=== PATIENT | female | born 1985 | race Caucasian/White ===

== ENCOUNTER 2020-09-20 02:55 | Outpatient (REF) | payer OTHER, SELFPAY ==
[2020-09-20 20:45] LABS: COVID-19 RT-PCR UVMMC Result Negative (Negative)
== END 2020-09-20 03:15 ==
LOC: LBO 02:55
PROVIDERS: PCP Nurse Practitioner; Visit Provider Nurse Practitioner Family
DX: Z11.59 Encounter for screening for other viral diseases (principal)
CPT/HCPCS: U0003

== ENCOUNTER 2021-04-13 15:34 | Emergency (ER) | payer OTHER, SELFPAY ==
[2021-04-13 15:39] VITALS: BP 122/78; PULSE 82; RESP 17; TEMP 36.3; O2SAT 98
--- NOTE | 2021-04-13 15:55 | W.ED.GENAD ---
Discharge Plan Disposition Patient Disposition: HOME Condition: Stable Discharge Details Clinical Impression: Encounter for medication refill Primary Care Provider: Janneth Ramírez ED Provider: Jerson White Home Meds and New Rx's Prescriptions: Continued rizatriptan [Maxalt] 10 mg tablet See Rx Instructions PO .COMPLEX Qty: 9 RF: 5 clonazepam 0.5 mg tablet 0.5 mg PO BID Qty: 60 RF: 1 modafinil 200 mg tablet 200 mg PO QAM RF: 0 sertraline [Zoloft] 50 mg tablet 100 mg PO DAILY RF: 0 dextroamphetamine-amphetamine [Adderall XR] 30 mg capsule,extended release 24hr 30 mg PO QAM RF: 0 dextroamphetamine-amphetamine [Adderall] 15 mg tablet 15 mg PO .q afternoon RF: 0 hydroxyzine HCl 50 mg tablet 25 mg PO QID PRNRF: 0 aripiprazole 5 mg tablet 5 mg PO DAILY RF: 0 Discharge Instructions Additional Instructions: Please take your medications as prescribed. Referrals: Janneth Ramírez NP [Primary Care Provider] - Discharge Data Discharge Date/Time-TO BE ENTERED AT DEPARTURE: 04/13/21 16:29 Medical Decision Making 36-year-old female employee of [employer] here requesting dose medications that she is prescribed for narcolepsy as she forgot her medications at home today. I will provide single dose of modafinil 200 mg, Adderall 30 mg, and Adderall 15 mg as requested. HPI General Mode of arrival: ambulatory. Date/Time Provider Initiated Documentation: 04/13/21 15:46. Limitations to Documentation: no limitations. Information obtained by: patient. HPI Narrative: 36-year-old female employee at [employer] here requesting medication refill. Patient commutes from [facility] to her area and notes she forgot to bring her medications for today. I received call from residential housekeeper who confirmed this requesting that 3 provide medication for her narcolepsy. Patient notes she takes modafinil 200 mg tablet daily and Adderall 30 mg at night and 1.5 mg in the morning. She is requesting single dose of each of these until she can get home tomorrow for continued medication Related Data Home Medications Medication Instructions Recorded Confirmed rizatriptan 10 mg tablet See Rx Instructions PO .COMPLEX #9 08/22/20 04/13/21 tab clonazepam 0.5 mg tablet 0.5 mg PO BID #60 tab 09/12/20 04/13/21 modafinil 200 mg tablet 200 mg PO QAM tab 10/19/20 04/13/21 sertraline 50 mg tablet 100 mg PO DAILY 02/02/21 04/13/21 dextroamphetamine-amphetamine 15 15 mg PO .q afternoon tab 03/20/21 04/13/21 mg tablet dextroamphetamine-amphetamine ER 30 mg PO QAM cap 03/20/21 04/13/21 30 mg 24hr capsule,extend release aripiprazole 5 mg PO DAILY 04/13/21 04/13/21 hydroxyzine HCl 25 mg PO QID PRN 04/13/21 04/13/21 Previous Rx's Medication Instructions Recorded rizatriptan 10 mg tablet See Rx Instructions PO .COMPLEX #9 08/22/20 tab clonazepam 0.5 mg tablet 0.5 mg PO BID #60 tab 09/12/20 Allergies Allergy/AdvReac Type Severity Reaction Status Date / Time Sulfa (Sulfonamide Allergy Hives Verified 11/24/20 10:56 Antibiotics) prochlorperazine AdvReac Intermediate dizziness, Verified 11/24/20 10:56 [From Compazine] disoriented General Stated Complaint: GenMedical KIRTI: 5 Review of Systems Constitutional Constitutional: Reports fatigue Endocrine Endocrine: Reports fatigue PFSH Medical History ADHD Anxiety Heart murmur Hypersomnia Migraine Migraine headache without aura Panic Seizures Played field hockey in college, multiple concussions. Had 2 seizures after; normal eeg. Family History Mother Anxiety Hypertension ADHD Sister Anxiety Paternal Aunt Cancer Paternal Uncle Cancer Paternal Grandmother Cancer Maternal Grandmother Depression Maternal Aunt Heart disease Social History Smoking/Tobacco Use Status: Never Smoking risk assessment performed?: Yes Alcohol Intake: current Alcohol Intake frequency: holidays/special occasions only Drug use: Never Substance use type: does not use Adopted: No Caregiver/Support person: Yes Foster care: No Household members: spouse and children Housing: house Number of Children: 1 Communication Needs: None Do you need help understanding health information?: Never 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, [employer] - [employer] Sexually active: Yes Do you think of yourself as: straight/heterosexual Current gender identity: female What is your relationship status?: living with partner Panel score (0-1 are the most socially isolated patients): 1 What type of physical activity do you participate in: regular exercise and running Duration: 30-45 minutes/day Frequency: 1-2 times per week Seatbelt use: always 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 Working smoke detector in home: Yes Fire extinguisher in home: Yes Carbon monox detector in home: Yes Do you feel safe at home: Yes Do you feel safe in your relationship?: Yes Exam Const General: cooperative Orientation: alert HENMT Mouth: moist mucous membranes Resp Effort & Inspection: normal respiratory effort Neuro General: patient alert and patient awake Cognition: normal cognition Speech: speech normal Psych Appearance: grossly normal Speech and Movement: speech and movement normal Course Vital Signs Vital signs: Vital Signs Temperature 36.3 C L 04/13/21 15:39 Pulse 82 04/13/21 15:39 Respiratory Rate 17 04/13/21 15:39 Blood Pressure 122/78 04/13/21 15:39 Pulse Oximetry 98 04/13/21 15:39 Temperature 36.3 C L 04/13/21 15:39 Temperature Source Temporal Artery Scan 04/13/21 15:39 Pulse 82 04/13/21 15:39 Respiratory Rate 17 04/13/21 15:39 Respiratory Effort Non-Labored 04/13/21 15:44 Blood Pressure 122/78 04/13/21 15:39 Blood Pressure Position Sitting 04/13/21 15:39 Pulse Oximetry 98 04/13/21 15:39 Oxygen Delivery Method Room Air 04/13/21 15:39 Oxygen Flow Rate 0 04/13/21 15:39 Pain Level 0 04/13/21 15:39
[2021-04-13] MEDS: MODAFINIL 200 MG TAB PO (16:23)
[2021-04-13 16:26] VITALS: RESP 18
== END 2021-04-13 16:29 | disposition home or self-care (01) ==
PROVIDERS: Emergency Provider Student in an Organized Health Care Education/Training Program; PCP Nurse Practitioner
DX: Z76.0 Encounter for issue of repeat prescription (principal)
CPT/HCPCS: 99283; 99282; J3490

== ENCOUNTER 2021-05-16 17:12 | Outpatient (REF) | payer OTHER, SELFPAY | END 2021-05-16 17:13 | disposition home or self-care (01) | LOC: LBO 17:12 | PROVIDERS: Visit Provider Advanced Practice Midwife | DX: Z32.01 Encounter for pregnancy test, result positive (principal) | CPT/HCPCS: 36415; 86850; 86900; 86901; 84702 ==

== ENCOUNTER 2021-05-18 04:36 | Outpatient (CLI) | payer OTHER, SELFPAY ==
[2021-05-18 15:21] LABS: HCG Quant, Pregnancy 23611 mIU/mL (1-3)
[2021-05-19 10:40] LABS: Lyme Ab w Rflx to Lyme Confirm Negative (Negative)
[2021-05-22 23:28] LABS: Anaplasma phagocytophilum Negative (Negative); B. miyamotoi PCR Negative (Negative); Babesia divergens/MO-1 Negative (Negative); Babesia duncani Negative (Negative); Babesia microti Negative (Negative); Ehrlichia chaffeensis Negative (Negative); Ehrlichia ewingii/canis Negative (Negative); Ehrlichia muris eauclairensis Negative (Negative)
== END 2021-05-18 04:37 | disposition home or self-care (01) ==
LOC: LBO 04:36
PROVIDERS: Nurse Practitioner; Visit Provider Advanced Practice Midwife
DX: G43.009 Migraine without aura, not intractable, without status migrainosus (principal); O20.0 Threatened abortion
CPT/HCPCS: 36415; 87798; 84702; 86618

== ENCOUNTER 2021-05-23 09:45 | Outpatient (CLI) | payer OTHER, SELFPAY ==
[2021-05-23 10:42] LABS: HCT 36.9 % (36.0-46.0); HGB 12.3 g/dL (11.2-15.7); MCH 29.3 pg (27.0-33.0); MCHC 33.3 % (32.0-36.0); MCV 87.9 fL (80-95); Platelet Count 255 10^3/uL (130-400); RDW 11.7 % (11.7-14.6); RDW-SD 37.5 fL; WBC 10.82 10^3/uL (4.4-10.8)
[2021-05-23 11:24] LABS: Chloride 100 mmol/L (98-107); Potassium 4.1 mmol/L (3.5-5.1); Sodium 138 mmol/L (136-145)
[2021-05-23 13:18] LABS: Source Nasal/Nares
[2021-05-23 23:18] LABS: COVID-19 PCR Negative (Negative)
== END 2021-05-23 09:46 | disposition home or self-care (01) ==
LOC: LBO 09:46
PROVIDERS: Visit Provider Obstetrics & Gynecology Gynecology
DX: O02.1 Missed abortion (principal); Z20.822 Contact with and (suspected) exposure to COVID-19; Z01.818 Encounter for other preprocedural examination; Z01.812 Encounter for preprocedural laboratory examination
CPT/HCPCS: 36415; 80051; 85027; 86850; 86900; 86901; 87635

== ENCOUNTER 2021-05-24 06:18 | Day surgery (SDC) | payer OTHER, SELFPAY ==
[2021-05-24] VITALS (8 sets, daily range): BP systolic 97–124; BP diastolic 60–80; PULSE 66–73; RESP 16–19; TEMP 36.1–36.6; O2SAT 99–100; BMI 28.2
[2021-05-24] MEDS: Lactated Ringers 1,000 ML 125 ML IV (07:05)
--- NOTE | 2021-05-24 07:21 | W.ANESPRE ---
General Info Date of Service Date Performed: 05/24/21 Height: 5 ft 7 in Weight: 81.8 kg Body Mass Index (BMI): 28.2 Surgical Procedure: Operation Date: 05/24/21 07:40 Proposed Procedures Side Surgeon p Suction Completion Thelma Rosas MD Meds Allergies and Home Medications Allergies Allergy/AdvReac Type Severity Reaction Status Date / Time Sulfa (Sulfonamide Allergy Intermediate Hives Verified 05/24/21 06:39 Antibiotics) prochlorperazine AdvReac Intermediate dizziness, Verified 05/24/21 06:40 [From Compazine] disoriented Home Medication Medication Instructions Recorded sertraline 50 mg tablet 100 mg PO DAILY 02/02/21 hydroxyzine HCl 25 mg PO QID PRN 04/13/21 vit no.95-ferrous 1 tab PO DAILY 05/12/21 fumarate 28 mg-folic acid 800 mcg tablet ondansetron 4 mg disintegrating 4 mg PO Q6H #60 tab 05/19/21 tablet promethazine 25 mg tablet 25 mg PO Q6H PRN #20 tab 05/23/21 Current Visit Medications: Current Medications Generic Name Dose Route Start Last Admin Trade Name Freq PRN Reason Stop Dose Admin Ringer's Solution 1,000 mls @ 125 mls/hr 05/24/21 06:00 IV 06/22/21 23:59 INFUSION CARLOS Doxycycline Hyclate 100 mg/ 100 mls @ 100 mls/hr 05/24/21 06:00 Sodium Chloride IVPB 05/24/21 16:00 PREOP CARLOS IV Miscellaneous Supplies 1 each 05/24/21 06:00 Iv Access IV 06/22/21 23:59 DIRECTED CARLOS Sodium Chloride 0 ml 05/24/21 06:00 Normal Saline Flush 10 Ml Syr IV 06/22/21 23:59 PRN PRN Sodium Chloride 0 ml 05/24/21 06:00 Normal Saline 10 Ml Vial IJ 06/22/21 23:59 DIRECTED PRN Sterile Water 0 ml 05/24/21 06:00 Water,Injection,Sterile 10 Ml Vial IJ 06/22/21 23:59 DIRECTED PRN PFSH Active Problems Active Problems: Problem Status Onset Code Encounter for screening for other viral diseases Z11.59 Abnormal EEG R94.01 Encounter for medication refill Z76.0 Positive test Z32.01 Missed O02.1 Preop examination Z01.818 Nausea/vomiting in O21.9 Migraine headache without aura G43.009 Panic F41.0 Seizures R56.9 Migraine G43.909 Heart murmur R01.1 ADHD F90.9 Hypersomnia G47.10 Anxiety F41.9 Medical History Medical History ADHD Anxiety Heart murmur Pt. states she had a complete work-up when she was 15, and hasn't had any issues with it since. Hypersomnia Migraine Migraine headache without aura Narcolepsy Pt. 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 Had 2 seizures after; normal eeg. Last seizure 2015 Tobacco Smoking/Tobacco Use Status: Never Alcohol Alcohol Intake: current Alcohol intake frequency: holidays/special occasions only Substance Use Substance use: Never Substance use type: does not use Details: alcohol: unknown Prental History History 2 Para 1 Hx # Term Pregnancies 1 Multiple births Hx # Pregnancies Ectopic pregnancies AB induced Hx Number of Living Children 1 AB spontaneous 1 Vital Signs and Lab Results Vital Signs Most Recent Vital Signs in EMR: Most Recent Vital Signs Temp Pulse Resp BP Pulse Ox 36.2 C L 69 16 123/74 99 05/24/21 06:49 05/24/21 06:49 05/24/21 06:49 05/24/21 06:49 05/24/21 06:49 Lab Results Blood Type / Crossmatch: Patient ABO/Rh A Positive 05/23/21 10:25 05/23/21 Antibody Screen NEGATIVE 05/23/21 10:25 05/23/21 Complete Blood Count: White Blood Count 10.82 10^3/uL (4.4-10.8) H 05/23/21 10:25 05/23/21 Red Blood Count 4.20 10^6/uL (3.93-5.22) 05/23/21 10:25 05/23/21 Hemoglobin 12.3 g/dL (11.2-15.7) 05/23/21 10:25 05/23/21 Hematocrit 36.9 % (36.0-46.0) 05/23/21 10:25 05/23/21 Platelet Count 255 10^3/uL (130-400) 05/23/21 10:25 05/23/21 Complete Metabolic Panel: Sodium Level 138 mmol/L (136-145) 05/23/21 10:25 05/23/21 Potassium Level 4.1 mmol/L (3.5-5.1) 05/23/21 10:25 05/23/21 Chloride Level 100 mmol/L (98-107) 05/23/21 10:25 05/23/21 Carbon Dioxide Level 23.0 mmol/L (21.0-32.0) 05/23/21 10:25 05/23/21 Liver Function Panel: No Data to Display Coagulation Panel: No Data to Display Cardiac Panel: No Data to Display Arterial Blood Gas: No Data to Display Venous Blood Gas: No Data to Display Pancreas Panel: No Data to Display Thyroid Panel: No Data to Display Infectious Disease: Coronavirus (COVID-19)(PCR) Negative (Negative) 05/23/21 10:36 05/23/21 Coronavirus 2019 Source Nasal/Nares 05/23/21 10:36 05/23/21 Blood Cultures: No Data to Display Toxicology Panel: No Data to Display Panel: Urine HCG, Qualitative Positive 05/12/21 14:35 05/12/21 Beta HCG, Quantitative 47704 mIU/mL (1-3) H 05/18/21 14:35 05/18/21 Anesthesia Assessment and Plan Anesthesia History Personal History: No History of Anesthesia Complications Family History: No Family History of Anesthesia Complications Exercise Tolerance Exercise Tolerance: Metabolic Equivalents>4 Pertinent Negatives Pertinent Negatives: No Symptoms of GERD Cardiac & Pulmonary Exam Cardiac Exam: Heart Murmur Present Pulmonary Exam: Clear Bilateral Breath Sounds Airway Exam Known Difficult Airway: No Mallampati Class: 2 Mouth Opening: Normal (> 3cm) Thyromental Distance: Greater than 3 cm Neck Range of Motion: Full ROM Neck Circumference: Normal Teeth Condition: Normal Dentition ASA Classification ASA Score: ASA 2 Emergency Case?: No NPO Status NPO Status: NPO Clears >2 hours, Solids >8 hours Status Status: Not Relevant due to Medical History Anesthesia Plan Resuscitation Status: Full Code Anesthesia Technique: General Anesthesia Airway Planned: Natural Airway Monitors Used: Standard Monitors
[2021-05-24] MEDS: DOXYCYCLINE 100 MG in Normal Saline 100 ML IVPB (07:24)
--- NOTE | 2021-05-24 08:00 | POCSPONT_PTH ---
PATIENT: Mary Araya LOC: [facility] U#:[id number] AGE/SX: 36/F ROOM: RE05/24/[address]: Thelma Rosas : 1985 BED: DIS: 05/24/2021 SPEC #: [id number] RECD: 05/24/21 12:30 STATUS: MEGAN REPhilomena #: [id number] WILMA: 05/24/21 08:[address]: Thelma Rosas DEPT: Surgical Specimen RECD BY: Vanessa Hagan ENTERED: 05/24/21 12:30 SP TYPE: POCMARIMAR WATTS DR: Unknown,Unknown Tissues: 1 - ,SPONTANEOUS Procedures: GROSS AND MICRO LEVEL 4 Comments: [id number]
[2021-05-24] MEDS: Bupivacaine 0.25% Pres-Free 30 ML VIAL (08:01)
[2021-05-24] MEDS: Silver Nitrate Stick 1 EACH (08:01)
--- NOTE | 2021-05-24 08:33 | W.PM.DSUDISC ---
Discharge Plan Disposition Patient Disposition: HOME Condition: Good Discharge Details Reason For Visit: Missed AB at 9w EGA. D&C Attending Provider: Thelma Rosas Primary Care Provider: Unknown,Unknown Home Meds and New Rx's Prescriptions: No Action PNV cmb#95-ferrous fumarate-FA 28 mg iron- 800 mcg tablet 1 tab PO DAILY RF: 0 promethazine 25 mg tablet 25 mg PO Q6H PRN (Reason: nausea and vomiting) Qty: 20 RF: 0 sertraline [Zoloft] 50 mg tablet 100 mg PO DAILY RF: 0 ondansetron 4 mg tablet,disintegrating 4 mg PO Q6H Qty: 60 RF: 0 hydroxyzine HCl 50 mg tablet 25 mg PO QID PRNRF: 0 Discharge Instructions Additional Instructions: Nothing in the vagina no tampons no intercourse until bleeding is stopped. Motrin 600 mg every 6 hours for pain. Stand Alone Forms: Anesthesia Discharge Inst., [facility] Post Gynecology Surgery, Briseida Oneill (DSU) Activity:: Activity as Tolerated Diet:: As Tolerated Discharge Orders Discharge Orders: Discharge Order (Routine); Ordered 05/24/21 Ordered By: Thelma Rosas DS: Diagnosis Discharge Diagnosis (1) H/O dilation and curettage: Status: Acute (2) Missed : Status: Acute
--- NOTE | 2021-05-24 08:37 | W.ANESPOSTOP ---
Postoperative Evaluation Date, Time and Location Date Performed: 05/24/21 Time Performed: 08:37 Patient Location: PACU Vital Signs Most Recent Imported Vital Signs: Most Recent Vital Signs Temp Pulse Resp BP Pulse Ox 36.2 C L 66 18 113/63 100 05/24/21 08:32 05/24/21 08:32 05/24/21 08:32 05/24/21 08:32 05/24/21 08:32 Pain Score Most Recent Pain Score: Most Recent Pain Score Pain Level 0 05/24/21 08:32 Assessment Mental Status: Awake (Alert & Oriented to Patient Baseline) Airway and Respiratory Function: Patent airway with normal (patient baseline) respiratory exam Cardiovascular Function: Hemodynamically Stable Hydration Status: Adequately Hydrated Nausea & Vomiting: No Nausea or Vomiting Pain: Pain is tolerable per patient (Reported slight cramping) Peripheral Nerve Block: Other (Patient localized by Dr. Rosas. )
--- NOTE | 2021-05-24 09:10 | W.PM.OP ---
Date of service: 05/24/21 Time of Service: 09:10 Operative Note Operative Note DATE OF PROCEDURE: 05/24/21 PRE-OP DIAGNOSIS: Missed AB at 9 weeks EGA PROCEDURE: Cervical dilation and suction evacuation of uterine contents SURGEON: Thelma Rosas ANESTHESIA TYPE: General:No Airway Refer to Anesthesia Record ESTIMATED BLOOD LOSS: 5 PATHOLOGY: other (Products of conception to pathology) COMPLICATIONS: None Patient was transported to: PACU Patient's condition: stable Indications: 36-year-old female with a documented empty gestational sac measuring approximately 7 weeks EGA who is requested definitive treatment. She has not experienced cramping or bleeding prior to this procedure. Findings: Uterus sounded to 10 cm. Moderate amount of products of conception retrieved. Procedure Description: Patient was taken to the operating room where she was placed in the dorsal supine position and general anesthesia was administered without difficulty. IV Doxycycline was administered upon arrival in the OR. She was then placed in the dorsal lithotomy position in [facility] stirrups in a neurologically neutral position. She was then prepped, and draped in the usual sterile fashion. Surgical timeout was performed. Milton speculum was placed into the vagina and the anterior lip of the cervix was infiltrated with 2 cc of 0.25% Marcaine without epinephrine. A single-tooth tenaculum was then used to grasp and hold the anterior lip of the cervix. A paracervical block was performed with 4 cc of quarter percent Marcaine injected into the 4 and 8:00 paracervical spaces respectively. The uterus was sounded to 10 cm. The cervix was then sequentially dilated to a maximum of 9 Cris and a 8 mm curved suction cannula was attached to suction and the level of suction tested. The cannula was inserted into the uterine cavity attached to suction and sequentially all 4 quadrants of the uterine cavity were suction curetted until minimal tissue returned. The suction cannula was then removed a banjo curette was used to perform a gentle curetting of all 4 quadrants of the uterine cavity. Minimal tissue was returned. A final insertion of the suction cannula and suction curetting of all 4 quadrants was performed with minimal tissue returned. All instruments were removed from the vagina tenaculum site was noted to be oozing. Silver Nitrate was applied to the areas with hemostasis achieved. All instruments were removed from the vagina. Patient was awakened and transported to recovery area in stable condition. All sponge lap needle counts correct x2
[2021-05-24] MEDS: oxyCODONE 5 mg/Acetaminophen 325 mg TAB 2 TAB PO (09:14)
== END 2021-05-24 10:25 | disposition home or self-care (01) ==
PROVIDERS: Visit Provider Obstetrics & Gynecology Gynecology
PROC: (CPT 59841; principal; 2021-05-24 07:30)
DX: O02.1 Missed abortion (principal); Z3A.09 9 weeks gestation of pregnancy
CPT/HCPCS: 59820; 88305; J1100; J1885; J2001; J2250; J2405

== ENCOUNTER 2021-08-07 16:20 | Outpatient (CLI) | payer OTHER, SELFPAY ==
[2021-08-07 17:00] LABS: Abs Immature Grans 0.06 10^3/uL (0.0-0.06); Absolute Basophil Count 0.04 10^3/uL (0.0-0.2); Basophils % 0.3; Eosinophils % 0.1; HCT 41.4 % (36.0-46.0); HGB 13.8 g/dL (11.2-15.7); Immature Grans % 0.4; Lymphocytes % 17.4; MCH 28.7 pg (27.0-33.0); MCHC 33.3 % (32.0-36.0); MCV 86.1 fL (80-95); MPV 9.8 fL (8.0-11.0); Monocytes % 4.4; Neutrophils % 77.4; Nucleated RBC 0 %; Platelet Count 312 10^3/uL (130-400); RBC 4.81 10^6/uL (3.93-5.22); RDW 11.7 % (11.7-14.6); WBC 14.86 10^3/uL (4.4-10.8)
[2021-08-07 17:02] LABS: Absolute Eosinophil Count 0.01 10^3/uL (0.0-0.7); Absolute Lymphocyte Count 2.59 10^3/uL (1.2-3.4); Absolute Monocyte Count 0.65 10^3/uL (0.1-0.8)
[2021-08-07 17:11] LABS: Mono Screening Negative (Negative)
[2021-08-07 17:27] LABS: HCG Qual (Urine) Negative
[2021-08-07 18:07] LABS: ALT 41 U/L (14-59); AST 29 U/L (15-37); Albumin 4.9 g/dL (3.4-5.0); Alkaline Phosphatase 53 U/L (46-116); Anion Gap 10.6 mmol/L (3-11); BUN 18 mg/dL (7-18); Bilirubin, Total 0.3 mg/dL (0.2-1.0); C-Reactive Protein 0.26 mg/dL (0.0-0.3); CO2 27.4 mmol/L (21.0-32.0); Calcium 9.9 mg/dL (8.5-10.1); Chloride 101 mmol/L (98-107); Glucose 86 mg/dL (74-106); Potassium 3.9 mmol/L (3.5-5.1); Sodium 139 mmol/L (136-145); Total Protein 8.6 g/dL (6.4-8.2)
[2021-08-07 18:44] LABS: Calculated LDL 167 mg/dL (<100); Cholesterol 270 mg/dL (<200); HDL Cholesterol 43 mg/dL (40-60); Triglyceride 303 mg/dL (<150); Vitamin B12 877 pg/mL (193-986)
[2021-08-07 18:46] LABS: Folate > 20.0 ng/mL (8.6-20.0)
[2021-08-11 04:14] LABS: 25-Hydroxy D Total 37 ng/mL; 25-Hydroxy D2 <4.0 ng/mL; 25-Hydroxy D3 37 ng/mL
== END 2021-08-07 16:21 | disposition home or self-care (01) ==
LOC: LBO 16:22
PROVIDERS: PCP Nurse Practitioner; Visit Provider Nurse Practitioner Psychiatric/Mental Health
DX: G47.9 Sleep disorder, unspecified (principal)
CPT/HCPCS: 36415; 80053; 80061; 82306; 81025; 82607; 82746; 85025; 86140; 86308

== ENCOUNTER 2021-09-07 11:36 | Emergency (ER) | payer OTHER, SELFPAY ==
--- NOTE | 2021-09-07 11:39 | W.ED.GENAD ---
Discharge Plan Disposition Patient Disposition: HOME Condition: Stable Discharge Details Clinical Impression: Fracture of toe of left foot Primary Care Provider: Janneth Ramírez ED Provider: Kristina Long Home Meds and New Rx's Prescriptions: Continued sertraline [Zoloft] 50 mg tablet 100 mg PO DAILY RF: 0 Vyvanse 70 mg capsule 70 mg PO DAILY MDD one Qty: 30 RF: 0 dextroamphetamine-amphetamine 15 mg tablet 15 mg PO DAILY RF: 0 dextroamphetamine-amphetamine 30 mg capsule,extended release 24hr 30 mg PO DAILY RF: 0 Discharge Instructions Instructions: Toe Fracture (ED) Additional Instructions: Rest, ice, and elevate the affected area as much as possible. Alternate tylenol and motrin as needed and directed for pain. Take the oxycodone for pain not relieved with tylenol or motrin. Call the orthopedist office today to schedule a follow-up for reevaluation. Return immediately to the emergency department if you develop any worsening or new concerning symptoms. Stand Alone Forms: Work Release Referrals: Terry Siddiqui MD [ [facility] STAFF PHYSICIAN] - Discharge Data Discharge Date/Time-TO BE ENTERED AT DEPARTURE: 09/07/21 13:24 Discharge Physician: Kristina Long Medical Decision Making 36-year-old female presents with left fourth toe and distal foot pain after stubbed her toe while cleaning around the house 2 days ago. There is tenderness to the left fourth toe and distal dorsal foot. Suspect fracture of toe. Patient denies . She admits to a recent miscarriage last month and declines giving urine test. A dose of ibuprofen ordered and referred x-rays. X-rays reviewed and notes nondisplaced fracture proximal phalanx of left fourth toe. Patient placed in walking boot and given crutches. Patient placed on orthopedic follow-up list. Advised on the importance of RICE. Advised to call Orthopedics today for follow-up. Usual and customary return precautions given prior to discharge. Medical Records Medical records reviewed: Yes I reviewed the patient's medical records. Imaging Data Radiologic Study: Radiologist's impression: XR FOOT LT COMPLETE CLINICAL HISTORY: s/p stubbed L 4th toe,r/o fx 4th toe distal foot. TECHNIQUE: 2D digital imaging was performed. COMPARISON: No exams were available for comparison FINDINGS: There is a nondisplaced fracture of the proximal phalanx of the 4th toe, this located in the proximal half of the proximal phalanx. Does not appear to obviously violate the metatarsophalangeal joint at this level. There is no radiopaque foreign body. No osseous lesions. No additional fractures. IMPRESSION: There is nondisplaced fracture in the proximal half of the proximal phalanx of the 4th toe. HPI General Mode of arrival: ambulatory. Date/Time Provider Initiated Documentation: 09/07/21 11:39. Limitations to Documentation: no limitations. Information obtained by: patient. HPI Narrative: Patient is a 36-year-old female presents with left foot pain for the past 2 days after stubbing her toe while walking. Patient states she was walking around her house cleaning when she stubbed her left fourth toe on a metal hinge of a recliner. Patient states she has been having pain since then but thinks it became worse after she [place]. She took ibuprofen this morning without relief. She denies any significant ankle pain. Related Data Home Medications Medication Instructions Recorded Confirmed sertraline 50 mg tablet 100 mg PO DAILY 02/02/21 09/07/21 lisdexamfetamine 70 mg capsule 70 mg PO DAILY #30 cap MDD one 06/12/21 09/07/21 dextroamphetamine-amphetamine 15 mg PO DAILY 09/07/21 09/07/21 dextroamphetamine-amphetamine 30 mg PO DAILY 09/07/21 09/07/21 Previous Rx's Medication Instructions Recorded lisdexamfetamine 70 mg capsule 70 mg PO DAILY #30 cap MDD one 06/12/21 Allergies Allergy/AdvReac Type Severity Reaction Status Date / Time Sulfa (Sulfonamide Allergy Intermediate Hives Verified 09/07/21 11:49 Antibiotics) prochlorperazine AdvReac Intermediate dizziness, Verified 09/07/21 11:49 [From Compazine] disoriented General KIRTI: 5 Review of Systems All systems reviewed & are unremarkable except as noted in HPI and below [facility] Active Problem List (Updated 09/07/21 @ 12:38 by Kristina Long DO) Fracture of toe of left foot (Acute) Missed menses (Acute) History of miscarriage, not currently (Acute) History of pre-eclampsia (Acute) H/O dilation and curettage (Acute) Encounter for screening for other viral diseases (Acute) Abnormal EEG (Acute) Encounter for medication refill (Acute) Positive test (Acute) Missed (Acute) Preop examination (Acute) Nausea/vomiting in (Acute) Migraine headache without aura (Acute) Panic (Acute) Seizures (Acute) Migraine (Chronic) Heart murmur (Acute) ADHD (Acute) Hypersomnia (Acute) Anxiety (Chronic) Medical History (Updated 09/07/21 @ 12:38 by Kristina Long DO) Narcolepsy Pt. states it goes between narcolepsy and hypersomnia Family History Mother Anxiety Hypertension ADHD Sister Anxiety Paternal Aunt Cancer Paternal Uncle Cancer Paternal Grandmother Cancer Maternal Grandmother Depression Maternal Aunt Heart disease Social History Smoking/Tobacco Use Status: Never Smoking risk assessment performed?: Yes Alcohol Intake: current Alcohol Intake frequency: holidays/special occasions only Drug use: Never Substance use type: does not use Details: alcohol: unknown Adopted: No Caregiver/Support person: Yes Foster care: No Household members: spouse and children Housing: house Number of Children: 1 Communication Needs: None Do you need help understanding health information?: Never 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, [employer]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[employer] Sexually active: Yes Do you think of yourself as: straight/heterosexual Current gender identity: female What is your relationship status?: living with partner Panel score (0-1 are the most socially isolated patients): 1 What type of physical activity do you participate in: regular exercise and running Duration: 30-45 minutes/day Frequency: 1-2 times per week Seatbelt use: always 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 Working smoke detector in home: Yes Fire extinguisher in home: Yes Carbon monox detector in home: Yes Do you feel safe at home: Yes Do you feel safe in your relationship?: Yes History History 2 Para 1 Hx # Term Pregnancies 1 Multiple births Hx # Pregnancies Ectopic pregnancies AB induced Hx Number of Living Children 1 AB spontaneous 1 Exam Const General: cooperative, healthy appearing and no acute distress HENMT Head: normal to inspection Mouth: oral mucosae normal Eyes General: appearance normal, both eyes and all related structures Neck Neck: normal visual inspection Resp Effort & Inspection: normal respiratory effort and able to speak in complete sentences Cardio Rate: regular rate Skin General skin exam: no rashes or lesions noted Neuro General: patient alert, patient awake and patient oriented x3 Motor: muscle tone normal throughout Extrem Ankle/foot/toe images: 1. Ecchymosis and tenderness of left fourth toe and dorsal distal foot. No open wounds. No deformity. No significant edema. Other: Left DP/PT pulses intact. Psych Appearance: grossly normal Affect: normal affect
[2021-09-07 11:44] VITALS: BP 135/92; PULSE 81; RESP 18; TEMP 36.6; O2SAT 99
--- NOTE | 2021-09-07 11:45 | DI.RAD_ITS ---
Exam(s) XR FOOT LT COMPLETE EXAM: XR FOOT LT COMPLETE CLINICAL HISTORY: s/p stubbed L 4th toe,r/o fx 4th toe distal foot. TECHNIQUE: 2D digital imaging was performed. COMPARISON: No exams were available for comparison FINDINGS: There is a nondisplaced fracture of the proximal phalanx of the 4th toe, this located in the proximal half of the proximal phalanx. Does not appear to obviously violate the metatarsophalangeal joint at this level. There is no radiopaque foreign body. No osseous lesions. No additional fractures. IMPRESSION: There is nondisplaced fracture in the proximal half of the proximal phalanx of the 4th toe. DATA REPOSITORY: RADIATION DOSE DELIVERED:
[2021-09-07] MEDS: Ibuprofen 600 MG TAB PO (12:04)
== END 2021-09-07 13:24 | disposition home or self-care (01) ==
PROVIDERS: Emergency Provider Physician Assistant; PCP Nurse Practitioner
DX: S92.515A Nondisplaced fracture of proximal phalanx of left lesser toe(s), initial encounter for closed fracture (principal); W22.03XA Walked into furniture, initial encounter
CPT/HCPCS: 29515; 99283; 73630

== ENCOUNTER 2021-10-24 09:07 | Emergency (ER) | payer OTHER, SELFPAY ==
--- NOTE | 2021-10-24 09:08 | ED.GENADUL_ITS ---
Discharge Plan Disposition Patient Disposition: HOME Condition: Stable Discharge Details Clinical Impression: Medication administered Primary Care Provider: Janneth Ramírez ED Provider: Kristina Long Home Meds and New Rx's Prescriptions: Continued Vyvanse 70 mg capsule 30 mg PO DAILY RF: 0 sertraline [Zoloft] 50 mg tablet 100 mg PO DAILY RF: 0 dextroamphetamine-amphetamine 15 mg tablet 15 mg PO DAILY RF: 0 dextroamphetamine-amphetamine 30 mg capsule,extended release 24hr 30 mg PO DAILY RF: 0 Discharge Instructions Additional Instructions: Please take the 15 mg dose on your Adderall this afternoon that you were given to go here in the emergency department upon discharge this morning. Please continue your regular medications as directed. Follow up with your primary care doctor in 1 week as needed. Return to the emergency department with any worsening or new concerning symptoms. 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 She denies any acute complaints. Vitals within normal limits. Patient appears comfortable and nontoxic. She take Adderall extended release 30 mg, Vyvanse 30 mg and Zoloft 100 mg now this morning and needs a 15 mg dose Adderall immediate release for the afternoon. Discussed with pharmacy and they will deliver these medications to the ED. Advised to follow up with the primary care doctor for re-evaluation as needed. Usual and customary return precautions given prior to discharge. Medical Records Medical records reviewed: Yes I reviewed the patient's medical records. HPI General Mode of arrival: ambulatory . Date/Time Provider Initiated Documentation: 10/24/21 09:07 . Limitations to Documentation: no limitations . Information obtained by: patient . 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 She denies any acute complaints. She states she takes Adderall XR 30 mg, Vyvanse 30 mg and Zoloft 100 mg in the morning and needs a 15 mg dose of Adderall this afternoon. Related Data Home Medications Medication Instructions Recorded Confirmed sertraline 50 mg tablet 100 mg PO DAILY 02/02/21 10/24/21 dextroamphetamine-amphetamine 15 mg PO DAILY 09/07/21 10/24/21 dextroamphetamine-amphetamine 30 mg PO DAILY 09/07/21 10/24/21 lisdexamfetamine 70 mg capsule 30 mg PO DAILY cap 09/22/21 10/24/21 Allergies Allergy/AdvReac Type Severity Reaction Status Date / Time Sulfa (Sulfonamide Allergy Intermediate Hives Verified 10/24/21 09:14 Antibiotics) prochlorperazine AdvReac Intermediate dizziness, Verified 10/24/21 09:14 [From Compazine] disoriented General KIRTI: 4 Review of Systems All systems reviewed & are unremarkable except as noted in HPI and below Constitutional Constitutional: Reports as per HPI, Denies chills and Denies fever(s) Eyes Eyes: Denies blurry vision ENT Ears, Nose, Mouth, and Throat: Denies dizziness, Denies sore throat and Denies throat swelling Cardiovascular Cardiovascular: Denies chest pain and Denies dyspnea Respiratory Respiratory: Denies cough and Denies dyspnea Gastrointestinal Gastrointestinal: Denies abdominal pain, Denies diarrhea and Denies vomiting Genitourinary Genitourinary: Denies hematuria and Denies dysuria Musculoskeletal Musculoskeletal: Denies back pain and Denies numbness Integumentary/Breasts Skin/Breast: Denies lesions and Denies rash Neurologic Neurologic: Denies dizziness, Denies localized weakness and Denies numbness Allergic/Immunologic Allergic/Immunologic: Denies throat swelling [facility] All Active Problems (Updated 10/24/21 @ 09:12 by Kristina Long DO) Medication administered (Acute) Fracture of toe of left foot (Acute) Proximal phalanx of the fourth toe Missed menses (Acute) History of miscarriage, not currently (Acute) History of pre-eclampsia (Acute) H/O dilation and curettage (Acute) Encounter for screening for other viral diseases (Acute) Abnormal EEG (Acute) Encounter for medication refill (Acute) Positive test (Acute) Missed (Acute) 05/23/2021. Confirmed: 7-week empty gestational sac Preop examination (Acute) Nausea/vomiting in (Acute) Ondansetron not effective. We will begin Phenergan 25 mg p.o. 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 Had 2 seizures after; normal eeg. Last seizure 2015 Migraine (Chronic) Heart murmur (Acute) Pt. states she had a complete work-up when she was 15, and hasn't had any issues with it since. ADHD (Acute) Hypersomnia (Acute) Anxiety (Chronic) Medical History (Updated 10/24/21 @ 09:12 by Kristina Long DO) Narcolepsy Pt. states it goes between narcolepsy and hypersomnia Family History Mother Anxiety Hypertension ADHD Sister Anxiety Paternal Aunt Cancer Paternal Uncle Cancer Paternal Grandmother Cancer Maternal Grandmother Depression Maternal Aunt Heart disease Social History Smoking/Tobacco Use Status: Never Smoking risk assessment performed?: Yes Alcohol Intake: current Alcohol Intake frequency: holidays/special occasions only Drug use: Never Substance use type: does not use Details: alcohol: unknown Adopted: No Caregiver/Support person: Yes Foster care: No Household members: spouse and children Housing: house Number of Children: 1 Communication Needs: None Do you need help understanding health information?: Never 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, [employer]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 - [employer] Sexually active: Yes Do you think of yourself as: straight/heterosexual Current gender identity: female What is your relationship status?: living with partner Panel score (0-1 are the most socially isolated patients): 1 What type of physical activity do you participate in: regular exercise and running Duration: 30-45 minutes/day Frequency: 1-2 times per week Seatbelt use: always Drive intox or ride w/intox trash collector truck driver: No Working smoke detector in home: Yes Fire extinguisher in home: Yes Carbon monox detector in home: Yes Do you feel safe at home: Yes Do you feel safe in your relationship?: Yes History History 2 Para 1 Hx # Term Pregnancies 1 Multiple births Hx # Pregnancies Ectopic pregnancies AB induced Hx Number of Living Children 1 AB spontaneous 1 Exam Const General: cooperative, healthy appearing and no acute distress HENMT Head: normal to inspection General nose exam: external nose normal Face and sinus: normal facial exam Mouth: oral mucosae normal and moist mucous membranes Eyes General: appearance normal, both eyes and all related structures Periorbital: periorbital findings normal Eyelids: eyelids normal Conjunctivae: conjunctivae normal Pupils: PERRL Neck Neck: normal visual inspection Resp Effort & Inspection: normal respiratory effort and able to speak in complete sentences Auscultation: clear to auscultation bilaterally Cardio Rate: regular rate Rhythm: regular rhythm Skin General skin exam: no rashes or lesions noted Neuro General: patient alert, patient awake and patient oriented x3 Motor: muscle tone normal throughout Extrem General: normal to inspection and full ROM Psych Appearance: grossly normal Affect: normal affect
[2021-10-24 09:09] VITALS: BP 120/75; PULSE 82; RESP 17; TEMP 36.4; O2SAT 98
[2021-10-24 09:17] VITALS: RESP 16
[2021-10-24] MEDS: Sertraline 50 MG TAB 100 MG PO (09:52)
== END 2021-10-24 09:55 | disposition home or self-care (01) ==
PROVIDERS: Emergency Provider Physician Assistant; PCP Nurse Practitioner
DX: F90.9 Attention-deficit hyperactivity disorder, unspecified type (principal); F41.9 Anxiety disorder, unspecified; Z76.0 Encounter for issue of repeat prescription
CPT/HCPCS: 99283; J3490

== ENCOUNTER 2022-07-19 10:22 | Outpatient (CLI) | payer OTHER, SELFPAY ==
[2022-07-19 16:01] LABS: TSH (W/Ref FT4) 2.56 uIU/mL (0.36-3.74)
[2022-07-20 20:40] LABS: FSH 10.6 mIU/mL (See Note)
[2022-07-20 20:48] LABS: LH 4.9 mIU/mL (See Note)
[2022-07-21 14:09] LABS: Antimullerian Hormone 0.69 ng/mL (0.15-7.5)
[2022-07-23 08:58] LABS: Insulin 8.4 uIU/mL (<29.0)
[2022-07-24 11:42] LABS: Estradiol, Mass Spectrometry 43 pg/mL; Estrone 44 pg/mL
== END 2022-07-19 10:23 | disposition home or self-care (01) ==
LOC: LBO 10:22
PROVIDERS: PCP Nurse Practitioner Adult Health; Visit Provider Advanced Practice Midwife
DX: Z31.9 Encounter for procreative management, unspecified (principal)
CPT/HCPCS: 36415; 82670; 82679; 83001; 83002; 83520; 83525; 84443

== ENCOUNTER 2022-09-26 02:09 | Outpatient (CLI) | payer OTHER, SELFPAY ==
[2022-09-26 12:13] LABS: Abs Immature Grans 0.03 10^3/uL (0.0-0.06); Absolute Basophil Count 0.02 10^3/uL (0.0-0.2); Absolute Eosinophil Count 0.03 10^3/uL (0.0-0.7); Absolute Lymphocyte Count 1.48 10^3/uL (1.2-3.4); Absolute Monocyte Count 0.59 10^3/uL (0.1-0.8); Absolute Neutrophil Count 4.84 10^3/uL (1.2-6.7); Basophils % 0.3; Eosinophils % 0.4; HCT 38.4 % (36.0-46.0); HGB 13.3 g/dL (11.2-15.7); Immature Grans % 0.4; Lymphocytes % 21.2; MCH 30.2 pg (27.0-33.0); MCHC 34.6 % (32.0-36.0); MCV 87 fL (80-95); MPV 10.3 fL (8.0-11.0); Monocytes % 8.4; Neutrophils % 69.3; Platelet Count 263 10^3/uL (130-400); RBC 4.41 10^6/uL (3.93-5.22); RDW 11.8 % (11.7-14.6); RDW-SD 38.1 fL; WBC 6.99 10^3/uL (4.4-10.8)
[2022-09-26 12:56] LABS: ALT 46 U/L (14-59); AST 24 U/L (15-37); Albumin 3.9 g/dL (3.4-5.0); Alkaline Phosphatase 64 U/L (46-116); Anion Gap 11.7 mmol/L (3-11); BUN 18 mg/dL (7-18); Bilirubin, Total 0.2 mg/dL (0.2-1.0); CO2 23.3 mmol/L (21.0-32.0); CREATININE 0.8 mg/dL (0.55-1.02); Chloride 100 mmol/L (98-107); Estimated GFR 96.66 (mL/min/1.73m2); Glucose 110 mg/dL (74-106); LDH 151 U/L (81-234); Potassium 3.6 mmol/L (3.5-5.1); Sodium 135 mmol/L (136-145); Total Protein 8.1 g/dL (6.4-8.2); Uric Acid 3.7 mg/dL (2.6-6.0)
[2022-09-27 09:17] LABS: Varicella IgG Antibody Positive (See Note)
[2022-09-27 09:20] LABS: Rubella IgG Ab (UVM) Positive (See Note)
[2022-09-27 09:33] LABS: Hepatitis C Ab w Rflx HCV PCR Negative (Negative)
[2022-09-27 09:39] LABS: HIV-1/2 Ag & Ab Screen Negative (Negative)
[2022-09-27 10:29] LABS: Hepatitis B Surface Ag Negative (Negative)
[2022-09-28 17:53] LABS: Syphilis IgG w/Reflex Nonreactive (Nonreactive)
== END 2022-09-26 02:10 | disposition home or self-care (01) ==
LOC: LBO 02:09
PROVIDERS: Advanced Practice Midwife; PCP Nurse Practitioner Adult Health; Visit Provider Advanced Practice Midwife
DX: O09.521 Supervision of elderly multigravida, first trimester (principal); Z87.59 Personal history of other complications of pregnancy, childbirth and the puerperium; Z3A.10 10 weeks gestation of pregnancy
CPT/HCPCS: 36415; 80053; 86787; 86803; 86850; 86900; 86901; 87340; 87389; 83615; 84550; 85025; 86762; 86780

== ENCOUNTER 2022-09-26 12:15 | Outpatient (REF) | payer OTHER, SELFPAY ==
[2022-09-26 14:15] LABS: *AMPHETAMINES SCREEN URINE Negative (Negative); *BARBITURATES SCREEN URINE Negative (Negative); *BENZODIAZEPINES SCREEN URINE Negative (Negative); Cannabinoids THC Negative (Negative); Cocaine Screen,Urine Negative (Negative); METHADONE URINE SCREEN Negative (Negative); OPIATES URINE SCREEN Negative (Negative); Tricyclic Antidepressants Negative (Negative)
[2022-10-03 14:44] LABS: Buprenorphine Negative ng/mL (Cutoff: 5.0); Norbuprenorphine Negative ng/mL (Cutoff: 2.5)
== END 2022-09-26 12:16 | disposition home or self-care (01) ==
LOC: LBN 12:15
PROVIDERS: PCP Nurse Practitioner Adult Health; Visit Provider Advanced Practice Midwife
DX: Z34.91 Encounter for supervision of normal pregnancy, unspecified, first trimester (principal); Z3A.10 10 weeks gestation of pregnancy
CPT/HCPCS: 80307; 80348; 87086

== ENCOUNTER 2022-10-09 06:55 | Emergency (ER) | payer OTHER, SELFPAY ==
[2022-10-09 07:03] VITALS: BP 126/78; PULSE 93; RESP 18; TEMP 36.6; O2SAT 98
--- NOTE | 2022-10-09 08:03 | ED.GENADUL_ITS ---
Discharge Plan Discharge Details Chief Complaint: RespSymp Primary Care Provider: Gaye Garcia ED Provider: Jerson White Home Meds and New Rx's Prescriptions: No Action ondansetron 4 mg tablet,disintegrating 4 mg PO Q6H Qty: 10 0RF PNV,calcium 89-[id number] acid 27 mg iron- 1 mg tablet 1 tab PO DAILY Qty: 90 3RF doxylamine-pyridoxine (vit B6) [Diclegis] 10-10 mg tablet,delayed release (DR/EC) 1 tab PO DAILY Qty: 20 0RF sertraline [Zoloft] 50 mg tablet 50 mg PO DAILY Rx Instructions: 01/17/21 [facility] note promethazine 25 mg suppository 25 mg DE Q6H PRN (Reason: nausea and vomiting) Qty: 12 0RF dextroamphetamine-amphetamine [Adderall XR] 20 mg capsule,extended release 24hr 20 mg PO DAILY MDD 1 Qty: 30 0RF magnesium 250 mg Tablet 250 mg PO DAILY Medical Decision Making 37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 No signs of focal bacterial infection on exam. Concern for viral infection. Consider influenza and COVID. Patient is in therapeutic window for Tamiflu and I will obtain stat testing. Patient appears mildly dehydrated. I will give IV fluid bolus and Zofran IV for nausea. Consider electrolyte abnormalities we will check labs. Bedside [id number] obstetrical ultrasound was performed by me: IUP with heart rate and movement observed transabdominally. HPI General Mode of arrival: ambulatory . Date/Time Provider Initiated Documentation: 10/09/22 07:39 . Limitations to Documentation: no limitations . Information obtained by: patient . HPI Narrative: Now you can initiate the setback 37-year-old female, 12 weeks , here with chief complaint of respiratory illness. Patient notes cough, congestion, headache, inflammation of the eyes and fatigue over the past 3 days symptoms are moderate. Headache was present yesterday. She continues to have congestion today. No associated fever or shortness of breath. Patient does note she has had nausea and vomiting over the past 5 to 6 weeks. She denies abdominal pain and vaginal bleeding. Related Data Home Medications Medication Instructions Recorded Confirmed vitamin with calcium 1 tab PO DAILY #90 tabs 09/05/22 10/09/22 no.72-iron 27 mg-folic acid 1 mg tablet doxylamine 10 mg-pyridoxine (vit 1 tab PO DAILY #20 tabs 09/22/22 10/09/22 B6) 10 mg tablet,delayed release (Diclegis) ondansetron 4 mg disintegrating 4 mg PO Q6H #10 tabs 09/26/22 10/09/22 tablet sertraline 50 mg tablet (Zoloft) 50 mg PO DAILY 09/26/22 10/09/22 promethazine 25 mg rectal 25 mg DE Q6H PRN nausea and 10/04/22 10/09/22 suppository vomiting #12 ea dextroamphetamine-amphetamine ER 20 mg PO DAILY #30 caps 10/06/22 10/09/22 20 mg 24hr capsule,extend release (Adderall XR) magnesium 250 mg tablet 250 mg PO DAILY 10/09/22 10/09/22 Previous Rx's Medication Instructions Recorded vitamin with calcium 1 tab PO DAILY #90 tabs 09/05/22 no.72-iron 27 mg-folic acid 1 mg tablet doxylamine 10 mg-pyridoxine (vit 1 tab PO DAILY #20 tabs 09/22/22 B6) 10 mg tablet,delayed release (Diclegis) ondansetron 4 mg disintegrating 4 mg PO Q6H #10 tabs 09/26/22 tablet promethazine 25 mg rectal 25 mg DE Q6H PRN nausea and 10/04/22 suppository vomiting #12 ea dextroamphetamine-amphetamine ER 20 mg PO DAILY #30 caps 10/06/22 20 mg 24hr capsule,extend release (Adderall XR) Allergies Allergy/AdvReac Type Severity Reaction Status Date / Time Sulfa (Sulfonamide Allergy Intermediate Hives Verified 10/09/22 07:06 Antibiotics) prochlorperazine AdvReac Intermediate dizziness, Verified 10/09/22 07:06 [From Compazine] disoriented General Stated Complaint: RespSymp KIRTI: 4 Review of Systems All systems reviewed & are unremarkable except as noted in HPI and below Constitutional Constitutional: Reports fatigue, Denies fever(s) and Reports headache(s) ENT Ears, Nose, Mouth, and Throat: Reports as per HPI and Reports headache(s) Cardiovascular Cardiovascular: Denies dyspnea Respiratory Respiratory: Reports cough (nonproductive) and Denies dyspnea Neurologic Neurologic: Reports headache(s) Endocrine Endocrine: Reports fatigue PFSH All Active Problems Advanced maternal age in multigravida (Acute) Family history of clotting disorder (Acute) Father has unidentified clotting disorder Stage 1 hypertension (Acute) History of pre-eclampsia (Acute) (Acute) ADHD (Chronic ~2004) [facility] Hypersomnia (Chronic) [facility] Anxiety (Chronic) [facility] Medical History Abnormal EEG status post head injury, had seizure that resolved, Acute torticollis 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 states she had a complete work-up when she was 15, and hasn't had any issues with it since. 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 Confirmed: 7-week empty gestational sac Narcolepsy Pt. 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 Had 2 seizures after; normal eeg. Last seizure 2015 Surgical History H/O dilation and curettage Family History Mother Anxiety Hypertension Dx'ed in her 30s ADHD Hypersomnia High cholesterol Sister Anxiety Paternal Aunt Cancer Colon cancer Paternal Uncle Cancer Paternal Grandmother Cancer Colon cancer Maternal Grandmother Anxiety Maternal Aunt Heart disease Father Hypertension Dx'ed in his 30s Prostate cancer High cholesterol Clotting disorder 3 DVT's unknown clotting disorder on blood thinners Social History Smoking/Tobacco Use Status: Never Smoking risk assessment performed?: Yes Alcohol Intake: current Alcohol Intake frequency: holidays/special occasions only Drug use: Never Substance use type: does not use Details: alcohol: unknown Adopted: No Caregiver/Support person: Yes Foster care: No Household members: spouse and children Housing: house Number of Children: 1 Communication Needs: None Education Level: college Details: Bachelor's Degree Do you need help understanding health information?: Never 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, 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- [employer] Pets and animals: Yes Pets and animals: cat(s) and dog(s) Sexually active: Yes Do you think of yourself as: straight/heterosexual Current gender identity: female What is your relationship status?: living with partner How often do you talk on the phone with friends or family?: three or more times per week How often do you get together with friends or relatives?: three or more times per week Do you belong to any clubs or organized social groups?: yes Panel score (0-1 are the most socially isolated patients): 3 What type of physical activity do you participate in: regular exercise and running Duration: 30-45 minutes/day Frequency: 3-4 times per week Andie/Christianity: Zoroastrianism Special andie needs: No Seatbelt use: always Helmet use: Yes Drive intox or ride w/intox flag car driver: No Working smoke detector in home: Yes Fire extinguisher in home: Yes Carbon monox detector in home: Yes Do you feel safe at home: Yes Do you feel safe in your relationship?: Yes History History 5 Para 1 Hx # Term Pregnancies 1 Multiple births 0 Hx # Pregnancies 0 Ectopic pregnancies 0 AB induced 0 Hx Number of Living Children 1 AB spontaneous 3 Past Pregnancies Del. Date GA/Weeks # Preg Succ Route Wgt Sex Labor Lgth Anesth esia Location [facility] 01/13/19 38 No Yes vaginal 3685.438 g Male 14 [facility] other 05/17/21 6 No No 08/16/21 5 No 05/16/22 5 No No Delivery Date: 01/13/19 Last Updated by: Natalia Alvarez CNM induced for pre-e, second degree perineal, no magnesium, [place] Delivery Date: 05/17/21 Last Updated by: Natalia Alvarez CNM blighted ovum, D&C Delivery Date: 08/16/21 Last Updated by: Natalia Alvarez CNM SAB no D&C Delivery Date: 05/16/22 Last Updated by: Natalia Alvarez CNM SAB no D&C Exam Const General: cooperative and no acute distress HENMT Mouth: mucous membranes dry Throat: posterior oropharynx normal Eyes Conjunctivae: conjunctival abnormality bilaterally (injection) Sclera: normal sclerae Neck Neck: trachea midline and supple Resp Auscultation: clear to auscultation bilaterally, no rales, no rhonchi and no wheezes Cardio Rate: regular rate and not tachycardic Rhythm: regular rhythm GI Palpation: soft, not firm, no guarding, no masses, not rigid, nontender and other (gravid abdomen) Skin General skin exam: no rashes or lesions noted Neuro General: patient alert, patient awake and tone normal Extrem General: no edema Psych Appearance: grossly normal Mental Status: mental status grossly normal Speech and Movement: speech and movement normal Mood: anxious mood Course Vital Signs Vital signs: Vital Signs Temperature 36.6 C 10/09/22 07:03 Pulse 93 H 10/09/22 07:03 Respiratory Rate 18 10/09/22 07:03 Blood Pressure 126/78 10/09/22 07:03 Pulse Oximetry 98 10/09/22 07:03 Temperature 36.6 C 10/09/22 07:03 Temperature Source Temporal Artery Scan 10/09/22 07:03 Pulse 93 H 10/09/22 07:03 Respiratory Rate 18 10/09/22 07:03 Respiratory Effort Non-Labored 10/09/22 07:09 Respiratory Depth Normal 10/09/22 07:09 Blood Pressure 126/78 10/09/22 07:03 Blood Pressure Position Sitting 10/09/22 07:03 Pulse Oximetry 98 10/09/22 07:03 Oxygen Delivery Method Room Air 10/09/22 07:03 Oxygen Flow Rate 0 10/09/22 07:03 Lab/Test Results Lab/Test Results: Laboratory Tests Range/Units 10/09/22 10/09/22 07:39 07:49 Specimen Type Cancelled SARS-CoV-2 (PCR) Cancelled Nasopharyn COVID-19 PCR Cancelled Influenza Type A RNA Cancelled Influenza Type B RNA Cancelled RSV RNA Qual (PCR) Cancelled Ref Test Perform Site Cancelled
[2022-10-09] MEDS: Ondansetron 4 MG/2 ML VIAL IVP (08:11)
[2022-10-09] MEDS: Lactated Ringers 1,000 ML 1000 ML IV (08:12)
[2022-10-09 08:26] LABS: Abs Immature Grans 0.08 10^3/uL (0.0-0.06); Absolute Basophil Count 0.04 10^3/uL (0.0-0.2); Absolute Eosinophil Count 0.07 10^3/uL (0.0-0.7); Absolute Monocyte Count 0.81 10^3/uL (0.1-0.8); Absolute Neutrophil Count 14.94 10^3/uL (1.2-6.7); Basophils % 0.2; Eosinophils % 0.4; HCT 36.9 % (36.0-46.0); HGB 12.8 g/dL (11.2-15.7); Immature Grans % 0.5; Lymphocytes % 9.6; MCHC 34.7 % (32.0-36.0); MCV 87 fL (80-95); MPV 10.1 fL (8.0-11.0); Monocytes % 4.6; Neutrophils % 84.7; Platelet Count 329 10^3/uL (130-400); RBC 4.26 10^6/uL (3.93-5.22); RDW 11.7 % (11.7-14.6); RDW-SD 37.2 fL; WBC 17.64 10^3/uL (4.4-10.8)
[2022-10-09 08:28] LABS: Absolute Lymphocyte Count 1.69 10^3/uL (1.2-3.4)
[2022-10-09 08:44] LABS: ALT 49 U/L (14-59); AST 24 U/L (15-37); Albumin 3.6 g/dL (3.4-5.0); Alkaline Phosphatase 88 U/L (46-116); Anion Gap 7.6 mmol/L (3-11); BUN 15 mg/dL (7-18); Bilirubin, Total 0.4 mg/dL (0.2-1.0); CO2 26.4 mmol/L (21.0-32.0); CREATININE 0.7 mg/dL (0.55-1.02); Calcium 9.2 mg/dL (8.5-10.1); Chloride 103 mmol/L (98-107); Estimated GFR 113.46 (mL/min/1.73m2); Glucose 87 mg/dL (74-106); Magnesium 1.9 mg/dL (1.8-2.4); Potassium 3.7 mmol/L (3.5-5.1); Sodium 137 mmol/L (136-145); Total Protein 8.4 g/dL (6.4-8.2)
[2022-10-09 09:06] LABS: COVID-19 PCR Negative (Negative); Influenza A PCR Negative (Negative); Influenza B PCR Negative (Negative); RSV PCR Negative (Negative)
[2022-10-09 09:27] LABS: Source Nasopharynx
--- NOTE | 2022-10-09 09:44 | ED.PROG_ITS ---
Date of service: 10/09/22 Time of Service: 09:44 Medical Decision Making Received signout from Dr. White. Patient's viral swab was negative. She did develop headache but felt slightly improved. Patient may use [id number] hydrating drops for her mild conjunctivitis. She will continue fluids and rest. She was counseled as to the appropriate use of acetaminophen. She is stable and appropriate for discharge. 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 In addition to nausea and vomiting for the past 5 to 6 weeks. Patient receiving IV fluid bolus and Zofran IV. Plan to follow- up on labs including flu and covid testing and reassess for disposition. Consider tamiflu. Last updated by Jerson White MD at 10/09/22 08:12 Discharge Plan Disposition Patient Disposition: Home Condition: Improving Discharge Details Clinical Impression: Acute viral syndrome Primary Care Provider: Gaye Garcia ED Provider: Roge Griffith Home Meds and New Rx's Prescriptions: Continued ondansetron 4 mg tablet,disintegrating 4 mg PO Q6H Qty: 10 0RF PNV,calcium 69-[id number]-qjrsp acid 27 mg iron- 1 mg tablet 1 tab PO DAILY Qty: 90 3RF doxylamine-pyridoxine (vit B6) [Diclegis] 10-10 mg tablet,delayed release (DR/EC) 1 tab PO DAILY Qty: 20 0RF promethazine 25 mg suppository 25 mg MO Q6H PRN (Reason: nausea and vomiting) Qty: 12 0RF magnesium 250 mg Tablet 250 mg PO DAILY No Action sertraline [Zoloft] 50 mg tablet 50 mg PO DAILY Rx Instructions: 01/17/21 [facility] note dextroamphetamine-amphetamine [Adderall XR] 20 mg capsule,extended release 24hr 20 mg PO DAILY MDD 1 Qty: 30 0RF Discharge Instructions Instructions: Viral Syndrome (ED) Additional Instructions: [place] amounts of fluids, rest. Continue routine medications. Your influenza/COVID/RSV PCR test were negative. Return if develop a fever, worsening cough, or any other acute concerns. Stand Alone Forms: Work Release
[2022-10-09 09:58] VITALS: BP 121/68; PULSE 73; RESP 18; O2SAT 97
== END 2022-10-09 10:06 | disposition home or self-care (01) ==
PROVIDERS: Student in an Organized Health Care Education/Training Program; Emergency Provider Emergency Medicine; PCP Nurse Practitioner Adult Health
DX: O26.891 Other specified pregnancy related conditions, first trimester (principal); Z3A.12 12 weeks gestation of pregnancy; B34.9 Viral infection, unspecified; R11.2 Nausea with vomiting, unspecified
CPT/HCPCS: 80053; 87631; 87637; 96361; 96374; 99284; U0003; 83735; 85025; J2405

== ENCOUNTER 2022-10-16 12:08 | Outpatient (CLI) | payer OTHER, SELFPAY ==
[2022-10-16 10:00] LABS: Panorama Kit Sent via Fed Ex
== END 2022-10-16 12:09 | disposition home or self-care (01) ==
LOC: LBO 12:12
PROVIDERS: PCP Nurse Practitioner Adult Health; Visit Provider Obstetrics & Gynecology
DX: Z34.91 Encounter for supervision of normal pregnancy, unspecified, first trimester (principal)
CPT/HCPCS: 36415

== ENCOUNTER 2022-10-24 13:52 | Outpatient (REF) | payer OTHER, SELFPAY ==
[2022-10-25 11:48] LABS: Chlamydia Result Negative (Negative); GC Result Negative (Negative)
== END 2022-10-24 13:53 | disposition home or self-care (01) ==
LOC: LBN 13:52
PROVIDERS: PCP Nurse Practitioner Adult Health; Visit Provider Advanced Practice Midwife
DX: O09.522 Supervision of elderly multigravida, second trimester (principal)
CPT/HCPCS: 87491; 87591

== ENCOUNTER 2023-01-14 01:33 | Outpatient (CLI) | payer OTHER, SELFPAY ==
[2023-01-14 09:15] LABS: HCT 34.4 % (36.0-46.0); MCH 29.9 pg (27.0-33.0); MCHC 34.9 % (32.0-36.0); MCV 86 fL (80-95); MPV 10.1 fL (8.0-11.0); Platelet Count 232 10^3/uL (130-400); RBC 4.02 10^6/uL (3.93-5.22); RDW 12.2 % (11.7-14.6); RDW-SD 38.4 fL; WBC 12.31 10^3/uL (4.4-10.8)
[2023-01-14 09:26] LABS: Glucose,1 Hr (Glucola) 92 mg/dL (80-140)
== END 2023-01-14 01:34 | disposition home or self-care (01) ==
LOC: LBO 01:35
PROVIDERS: PCP Nurse Practitioner Adult Health; Visit Provider Advanced Practice Midwife
DX: Z34.90 Encounter for supervision of normal pregnancy, unspecified, unspecified trimester (principal)
CPT/HCPCS: 36415; 81240; 81241; 82784; 82950; 85027; 85300; 85303; 85306; 85610; 85613; 85730; 85732; 85240; 85379

== ENCOUNTER 2023-03-04 13:49 | Outpatient (CLI) | payer OTHER, SELFPAY ==
[2023-03-04 14:35] LABS: Abs Immature Grans 0.04 10^3/uL (0.0-0.06); Absolute Basophil Count 0.01 10^3/uL (0.0-0.2); Absolute Eosinophil Count 0.03 10^3/uL (0.0-0.7); Absolute Lymphocyte Count 1.86 10^3/uL (1.2-3.4); Absolute Monocyte Count 0.47 10^3/uL (0.1-0.8); Absolute Neutrophil Count 6.67 10^3/uL (1.2-6.7); Basophils % 0.1; Eosinophils % 0.3; HCT 31.5 % (36.0-46.0); HGB 10.9 g/dL (11.2-15.7); Immature Grans % 0.4; Lymphocytes % 20.5; MCH 29.6 pg (27.0-33.0); MCHC 34.6 % (32.0-36.0); MCV 86 fL (80-95); MPV 10.3 fL (8.0-11.0); Monocytes % 5.2; Neutrophils % 73.5; Platelet Count 217 10^3/uL (130-400); RBC 3.68 10^6/uL (3.93-5.22); RDW 12.5 % (11.7-14.6); WBC 9.08 10^3/uL (4.4-10.8)
[2023-03-04 14:45] LABS: COMMENT (LAB VIEW ONLY) 62.28 mg/dL; PROTEIN 8.6 mg/dL; Prot/Crea Ur Ratio 0.13
[2023-03-04] MEDS: Butalbital/Acetaminophen/Caffeine 50/325/40 TAB PO (14:49)
[2023-03-04 14:51] LABS: ALT 32 U/L (14-59); AST 28 U/L (15-37); Albumin 2.4 g/dL (3.4-5.0); Alkaline Phosphatase 107 U/L (46-116); Anion Gap 10.6 mmol/L (3-11); BUN 12 mg/dL (7-18); Bilirubin, Total 0.3 mg/dL (0.2-1.0); CO2 23.4 mmol/L (21.0-32.0); CREATININE 0.7 mg/dL (0.55-1.02); Calcium 8.4 mg/dL (8.5-10.1); Chloride 103 mmol/L (98-107); Estimated GFR 113.46 (mL/min/1.73m2); Glucose 85 mg/dL (74-106); Potassium 3.6 mmol/L (3.5-5.1); Sodium 137 mmol/L (136-145); Total Protein 6.4 g/dL (6.4-8.2)
[2023-03-04 15:31] VITALS: BP 137/88; PULSE 75; TEMP 36.4
--- NOTE | 2023-03-04 15:34 | W.OBNST ---
Date of service: 03/04/23 Time of Service: 14:35 NST Evaluation Reason for NST Reasons for Nonstress Test: OTHER, SEE COMMENT Reason for NST Other: migrane Gestational Age Gestational Age in Weeks and Days: 32 Weeks and 6Days Test and Monitor Explained Test/Monitor Explained: Test Explained, Monitor Explained and Patient Verbalized Understanding Vital Signs Blood Pressure: 137/88 Pulse: 75 Temperature: 97.5 F Urine Results Urine Protein: Negative Urine Ketones: Negative Urine Glucose: Negative Urine Blood: Negative NST Information Date on Monitor: 03/04/23 Time on Monitor: 13:55 Date off Monitor: 03/04/23 Time off Monitor: 14:35 Total Time on Monitor: 40 NST Interventions: PO Hydration, Notify Provider and Other Contraction Frequency: 0 NST Evaluation Patient States Movement: Present FHR Baseline: 150 Variability: Moderate 6-25 bpm Accelerations: 15x15 Decelerations: None NST Results: Reactive Note Ultrasound Done: N/A. NST Note Note: NST done due to GONZALES and history of pre-eclampsia. Pre-eclampsia labs negative. NST is reactive. Discharged. NST Reviewed and Verified by: Natalia Alvarez
[2023-03-04 15:36] VITALS: BP 137/88; PULSE 75; TEMP 36.4
== END 2023-03-04 15:33 | disposition home or self-care (01) ==
LOC: BCD 13:50 → OBS 13:54
PROVIDERS: PCP Nurse Practitioner Adult Health; Visit Provider Advanced Practice Midwife
DX: O26.893 Other specified pregnancy related conditions, third trimester (principal); R51.9 Headache, unspecified; Z87.59 Personal history of other complications of pregnancy, childbirth and the puerperium; Z3A.32 32 weeks gestation of pregnancy
CPT/HCPCS: 80053; 59025; 82565; 84156; 85025

== ENCOUNTER 2023-03-06 01:44 | Outpatient (CLI) | payer OTHER, SELFPAY ==
--- NOTE | 2023-03-06 08:15 | DI.US_ITS ---
Exam(s) US OB TREVOR WEIGHT EXAM: US OB TREVOR WEIGHT CLINICAL HISTORY: Adderall treatment in ,medication exp,O09.891. TECHNIQUE: Transabdominal obstetrical ultrasound performed. COMPARISON: US POCUS EXAM from 09/05/2022 FINDINGS:: Number of fetuses: One. position: Vertex. Placental location: Anterior, grade 1 no evidence of previa. BIOMETRIC DATA: BPD: 83mm = 33+4 weeks HC: 301mm = 33+3 weeks AC: 290mm = 33+ 0 weeks FL: 64 mm = 32+ 6 weeks EFW: 2106 Gms = 38% Composite Age: 33+2 weeks MARY JANE: 22 April [birth year]23 Heart Rate: 143BPM Amniotic fluid index: 14.6 cm. Amount of fluid is visually within normal limits. IMPRESSION: size and weight are within the expected range. DATA REPOSITORY:
[2023-03-30 10:16] VITALS: BP 135/90; PULSE 97
== END 2023-03-30 10:50 ==
LOC: DI 01:44 → OBS 03-30 09:46
PROVIDERS: PCP Nurse Practitioner Adult Health; Visit Provider Advanced Practice Midwife
DX: O09.893 Supervision of other high risk pregnancies, third trimester (principal)
CPT/HCPCS: 76816

== ENCOUNTER 2023-03-26 18:48 | Outpatient (CLI) | payer OTHER, SELFPAY ==
[2023-03-26 19:30] VITALS: BP 131/86; PULSE 85; RESP 18
[2023-03-26 19:30] LABS: HCT 30.4 % (36.0-46.0); HGB 10.7 g/dL (11.2-15.7); MCH 29.8 pg (27.0-33.0); MCHC 35.2 % (32.0-36.0); MCV 85 fL (80-95); MPV 10.8 fL (8.0-11.0); Platelet Count 219 10^3/uL (130-400); RBC 3.59 10^6/uL (3.93-5.22); RDW 12.6 % (11.7-14.6); RDW-SD 38.5 fL; WBC 8.56 10^3/uL (4.4-10.8)
[2023-03-26 19:43] VITALS: BP 133/89; PULSE 85
[2023-03-26 19:45] VITALS: BP 133/89; PULSE 85; RESP 18
[2023-03-26 19:46] LABS: ALT 24 U/L (14-59); AST 22 U/L (15-37); Albumin 2.5 g/dL (3.4-5.0); Alkaline Phosphatase 166 U/L (46-116); Anion Gap 10.2 mmol/L (3-11); BUN 15 mg/dL (7-18); Bilirubin, Total 0.3 mg/dL (0.2-1.0); CO2 24.8 mmol/L (21.0-32.0); CREATININE 0.7 mg/dL (0.55-1.02); Calcium 9.2 mg/dL (8.5-10.1); Chloride 103 mmol/L (98-107); Estimated GFR 113.46 (mL/min/1.73m2); Glucose 91 mg/dL (74-106); Potassium 3.8 mmol/L (3.5-5.1); Sodium 138 mmol/L (136-145); Total Protein 6.6 g/dL (6.4-8.2); Uric Acid 6.6 mg/dL (2.6-6.0)
[2023-03-26 20:00] VITALS: BP 121/87; PULSE 84; RESP 18
--- NOTE | 2023-03-26 22:59 | W.OBNST ---
Date of service: 03/26/23 Time of Service: 22:59 NST Evaluation Reason for NST Reasons for Nonstress Test: LABOR Reason for NST Other: rule out preeclampsia Gestational Age Gestational Age in Weeks and Days: 36 Weeks and 0Days Test and Monitor Explained Test/Monitor Explained: Test Explained, Monitor Explained and Patient Verbalized Understanding Vital Signs Blood Pressure: 133/89 Pulse: 85 NST Information Date on Monitor: 03/26/23 Time on Monitor: 18:30 Date off Monitor: 03/26/23 NST Interventions: PO Hydration NST Evaluation Patient States Movement: Present FHR Baseline: 135 Variability: Moderate 6-25 bpm Accelerations: 10x10 NST Results: Reactive Note Ultrasound Done: N/A. 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 She took her BP herself and it was 140/90. NST was reactive. BP 130s/80s. preeclampsia panel drawn and CBC and CMP were WNL. Uric acid slightly elevated at 6.6. Urine dip neg for protein. Mary was encouraged to rest and take fioricet at home and to call if her headache persists. I recommended that she stop work at this time and to return in 2 days for NST and BP check. NST Reviewed and Verified by: Natalia Bunn
[2023-03-26 23:02] VITALS: BP 133/89; PULSE 85
== END 2023-03-26 20:00 | disposition home or self-care (01) ==
LOC: BCD 18:49 → OBS 19:13
PROVIDERS: PCP Nurse Practitioner Adult Health; Visit Provider Advanced Practice Midwife
DX: O13.3 Gestational [pregnancy-induced] hypertension without significant proteinuria, third trimester (principal); Z3A.36 36 weeks gestation of pregnancy
CPT/HCPCS: 80053; 85027; 59025; 84550

== ENCOUNTER 2023-03-28 05:55 | Outpatient (CLI) | payer OTHER, SELFPAY ==
[2023-03-28 11:10] VITALS: BP 137/101; PULSE 91; TEMP 36.4
[2023-03-28 11:50] LABS: HCT 33.9 % (36.0-46.0); HGB 11.9 g/dL (11.2-15.7); MCH 29.8 pg (27.0-33.0); MCHC 35.1 % (32.0-36.0); MCV 85 fL (80-95); MPV 10.8 fL (8.0-11.0); Platelet Count 231 10^3/uL (130-400); RDW 12.7 % (11.7-14.6); RDW-SD 38.8 fL; WBC 10.18 10^3/uL (4.4-10.8)
[2023-03-28 12:07] LABS: ALT 24 U/L (14-59); AST 24 U/L (15-37); Albumin 2.8 g/dL (3.4-5.0); Alkaline Phosphatase 185 U/L (46-116); Anion Gap 10.2 mmol/L (3-11); BUN 15 mg/dL (7-18); Bilirubin, Total 0.5 mg/dL (0.2-1.0); CO2 24.8 mmol/L (21.0-32.0); CREATININE 0.8 mg/dL (0.55-1.02); Calcium 8.9 mg/dL (8.5-10.1); Chloride 103 mmol/L (98-107); Estimated GFR 96.66 (mL/min/1.73m2); Glucose 82 mg/dL (74-106); Sodium 138 mmol/L (136-145); Total Protein 7.2 g/dL (6.4-8.2); Uric Acid 7.4 mg/dL (2.6-6.0)
[2023-03-28 12:08] LABS: LDH 177 U/L (81-234)
[2023-03-28 12:09] LABS: COMMENT (LAB VIEW ONLY) 41.21 mg/dL; PROTEIN 11.6 mg/dL; Prot/Crea Ur Ratio 0.28
--- NOTE | 2023-03-28 13:49 | W.OBNST ---
Date of service: 03/28/23 Time of Service: 13:49 NST Evaluation Reason for NST Reasons for Nonstress Test: GESTATIONAL HYPERTENSION Gestational Age Gestational Age in Weeks and Days: 36 Weeks and 2Days Test and Monitor Explained Test/Monitor Explained: Test Explained, Monitor Explained and Patient Verbalized Understanding Vital Signs Blood Pressure: 137/101 Pulse: 91 Temperature: 97.5 F Urine Results Urine Protein: Negative Urine Ketones: Negative Urine Glucose: Negative Urine Blood: Negative NST Information Date on Monitor: 03/28/23 Time on Monitor: 11:11 Date off Monitor: 03/28/23 Time off Monitor: 11:50 Total Time on Monitor: 39 NST Interventions: PO Hydration NST Evaluation Patient States Movement: Present FHR Baseline: 135 Variability: Moderate 6-25 bpm Accelerations: 15x15 Decelerations: None NST Results: Reactive Note Ultrasound Done: N/A. NST Note Note: Mary reports a mild headache for which she took fioricet last evening and the evening before with fair effect, Follow-up BP 130s/90s. Negative edema. 3+ reflexes without clonus which Mary reports is baseline for her. Protein creatinene ratio 0.28 uric acid 7.4. Other serum labs WNL. Consult with Dr Silveira and 24 hour urine recommended and return in 48 hours for NST, labs, and BP. Precautions reviewed. Modified bedrest at home. IOL discussed after 37 weeks if BP is not in severe range. Call if headache worsens. NST Reviewed and Verified by: Natalia Bunn
[2023-03-28 13:53] VITALS: BP 137/101; PULSE 91; TEMP 36.4
== END 2023-03-28 13:22 | disposition home or self-care (01) ==
LOC: BCD 05:56 → OBS 11:09
PROVIDERS: PCP Nurse Practitioner Adult Health; Visit Provider Advanced Practice Midwife
DX: O13.3 Gestational [pregnancy-induced] hypertension without significant proteinuria, third trimester (principal); Z3A.36 36 weeks gestation of pregnancy
CPT/HCPCS: 80053; 85027; 59025; 82565; 83615; 84156; 84550; 87081

== ENCOUNTER 2023-03-29 11:17 | Outpatient (REF) | payer OTHER, SELFPAY ==
[2023-03-30 11:38] LABS: PROTEIN 8.7 mg/dL (0.0-11.9); TOTAL PROTEIN,URINE TIMED 189.2 mg/24hr (0.0-149.1); Total Volume 2175 ml
== END 2023-03-29 11:18 | disposition home or self-care (01) ==
LOC: LBN 11:17
PROVIDERS: PCP Nurse Practitioner Adult Health; Visit Provider Advanced Practice Midwife
DX: O13.3 Gestational [pregnancy-induced] hypertension without significant proteinuria, third trimester (principal)
CPT/HCPCS: 84155

== ENCOUNTER 2023-03-30 10:11 | Outpatient (CLI) | payer OTHER, SELFPAY ==
[2023-03-30 10:22] VITALS: BP 135/90; PULSE 97; TEMP 36.6
[2023-03-30 10:41] LABS: HCT 31.4 % (36.0-46.0); HGB 11.3 g/dL (11.2-15.7); MCH 30.7 pg (27.0-33.0); MCV 85 fL (80-95); MPV 10.9 fL (8.0-11.0); Platelet Count 196 10^3/uL (130-400); RBC 3.68 10^6/uL (3.93-5.22); RDW 12.7 % (11.7-14.6); RDW-SD 39.5 fL; WBC 8.76 10^3/uL (4.4-10.8)
[2023-03-30 11:02] LABS: ALT 22 U/L (14-59); AST 20 U/L (15-37); Albumin 2.4 g/dL (3.4-5.0); Alkaline Phosphatase 166 U/L (46-116); Anion Gap 8.9 mmol/L (3-11); BUN 14 mg/dL (7-18); Bilirubin, Total 0.3 mg/dL (0.2-1.0); CO2 22.1 mmol/L (21.0-32.0); CREATININE 0.6 mg/dL (0.55-1.02); Calcium 8.2 mg/dL (8.5-10.1); Chloride 106 mmol/L (98-107); Estimated GFR 117.75 (mL/min/1.73m2); Glucose 117 mg/dL (74-106); LDH 160 U/L (81-234); Potassium 3.8 mmol/L (3.5-5.1); Sodium 137 mmol/L (136-145); Total Protein 6.6 g/dL (6.4-8.2); Uric Acid 6.2 mg/dL (2.6-6.0)
--- NOTE | 2023-03-30 11:10 | W.OBNST ---
Date of service: 03/30/23 Time of Service: 11:10 NST Evaluation Reason for NST Reasons for Nonstress Test: GESTATIONAL HYPERTENSION Gestational Age Gestational Age in Weeks and Days: 36 Weeks and 4Days Test and Monitor Explained Test/Monitor Explained: Test Explained, Monitor Explained and Patient Verbalized Understanding Vital Signs Blood Pressure: 135/90 Pulse: 97 Temperature: 97.9 F Urine Results Urine Protein: Positive Urine Ketones: Negative Urine Glucose: Negative Urine Blood: Negative NST Information Date on Monitor: 03/30/23 Time on Monitor: 09:57 Date off Monitor: 03/30/23 Time off Monitor: 10:18 Total Time on Monitor: 21 NST Interventions: Notify Provider and Other Contraction Frequency: 0 NST Evaluation Patient States Movement: Present FHR Baseline: 140 Variability: Moderate 6-25 bpm Accelerations: 15x15 Decelerations: None NST Results: Reactive Note Ultrasound Done: N/A. NST Note Note: Cvx exam: ft/20% soft, mid to posterior position, vtx -3, intact membranes (garcia score=3) Serum labs stable and nml 24 hr urine pending Return for NST, repeat labs and BP check in 3 days NST Reviewed and Verified by: Maty Cotto
[2023-03-30 11:13] VITALS: BP 135/90; PULSE 97; TEMP 36.6
== END 2023-03-30 11:20 | disposition home or self-care (01) ==
LOC: BCD 10:12 → OBS 10:12
PROVIDERS: PCP Nurse Practitioner Adult Health; Visit Provider Advanced Practice Midwife
DX: O10.013 Pre-existing essential hypertension complicating pregnancy, third trimester (principal); Z3A.36 36 weeks gestation of pregnancy
CPT/HCPCS: 36415; 80053; 85027; 59025; 83615; 84550

== ENCOUNTER 2023-04-02 15:39 | Inpatient (IN) | payer OTHER, SELFPAY ==
[2023-04-02 13:05] VITALS: BP 158/105; PULSE 83; TEMP 36.8
[2023-04-02 13:44] LABS: HCT 32.8 % (36.0-46.0); HGB 11.5 g/dL (11.2-15.7); MCHC 35.1 % (32.0-36.0); MCV 86 fL (80-95); MPV 11.2 fL (8.0-11.0); Platelet Count 199 10^3/uL (130-400); RBC 3.83 10^6/uL (3.93-5.22); RDW 12.8 % (11.7-14.6); RDW-SD 39.9 fL; WBC 10.12 10^3/uL (4.4-10.8)
[2023-04-02 13:55] LABS: COMMENT (LAB VIEW ONLY) 23.72 mg/dL; PROTEIN 9.3 mg/dL; Prot/Crea Ur Ratio 0.39
[2023-04-02 14:00] LABS: ALT 26 U/L (14-59); AST 23 U/L (15-37); Albumin 2.5 g/dL (3.4-5.0); Alkaline Phosphatase 178 U/L (46-116); Anion Gap 11.7 mmol/L (3-11); BUN 14 mg/dL (7-18); Bilirubin, Total 0.2 mg/dL (0.2-1.0); CO2 20.3 mmol/L (21.0-32.0); CREATININE 0.7 mg/dL (0.55-1.02); Calcium 8.3 mg/dL (8.5-10.1); Chloride 104 mmol/L (98-107); Estimated GFR 113.46 (mL/min/1.73m2); Glucose 107 mg/dL (74-106); Potassium 3.9 mmol/L (3.5-5.1); Sodium 136 mmol/L (136-145); Total Protein 6.9 g/dL (6.4-8.2)
--- NOTE | 2023-04-02 15:59 | W.OBNST ---
Date of service: 04/02/23 Time of Service: 15:59 NST Evaluation Reason for NST Reasons for Nonstress Test: GESTATIONAL HYPERTENSION Gestational Age Gestational Age in Weeks and Days: 41 Weeks and 2Days Test and Monitor Explained Test/Monitor Explained: Test Explained, Monitor Explained and Patient Verbalized Understanding Vital Signs Blood Pressure: 158/105 Pulse: 83 Temperature: 98.2 F NST Information Date on Monitor: 04/02/23 Time on Monitor: 13:00 Date off Monitor: 04/02/23 Time off Monitor: 13:32 Total Time on Monitor: 32 NST Interventions: PO Hydration NST Evaluation Patient States Movement: Present FHR Baseline: 140 Variability: Moderate 6-25 bpm Accelerations: 15x15 Decelerations: None NST Results: Reactive Note Ultrasound Done: N/A. NST Note Note: Pt to be admitted today for cervical ripening for pre-eclampsia NST Reviewed and Verified by: Maty Cotto
[2023-04-02 16:00] VITALS: BP 158/105; PULSE 83; TEMP 36.8
--- NOTE | 2023-04-02 16:00 | W.PM.OBHPL1 ---
Date of service: 04/02/23 Time of Service: 16:00 Assessment and Plan Assessment and plan (1) Pre-eclampsia complicating hypertension: Status: Acute Assessment and plan: A: 37 yo @ 37 wks Followed for gHTN, developed GONZALES x1 week and proteinuria BP's labile from WNL to mild range, serum labs WNL today GBS negative, unfavorable cvx w/bonner score of 1-2 Cateogry 1 tracing, low risk for SD, increased risk for PPH d/t IOL and pre-e Co-morbidities of anxiety, AMA, narcolepsy, ADHD, migraines P: Admit to BC, admission T&S Begin cervical ripening with cook catheter Consider concurrent misoprostol administration Dr. Silveira consulting Anticipate OB-HPI Labor/Delivery History of Present Illness Reason for Visit: NST Chief Complaint: Scheduled Induction of Labor Indication for Induction: PreEclampsia. MARY JANE Calculator Estimated Delivery Date Method Current WG Current Estimate 04/23/23 LMP (Certain) 37w 0d Other Estimates 04/25/23 Ultrasound #1 36w 5d History of Present Expected Delivery Route/Plan - CNM FOB/ - Mynor Dumont (2nd child together, has a son from prev relationship) BG Pt anticipates IOL at term Prefers no epidural if possible. GBS negative Specific Issues/Plan 1. AMA w/hx pre-eclampsia. [place] [facility] [place] & MFM consult 1a. Panorama cfDNA LR female. Declines AFP 2. Will start low dose ASA @ 12 wks (AMA, stage 1 HTN, hx pre-e) 3. Hx Depression anxiety, ADHD & narcolepsy. [place] [facility] [place] (see notes) 4. Using ondansetron and diclegis prn, phenergan suppositories. 4a. 10/21/22- Protonix daily recommended at 14 weeks. 5. CMP done as baseline=WNL, prot/creat ratio at 30 wks-nml 6. No heart murmur heard, patient reports not noted since last 7. History of seizures associated with head injures as a child, no epilepsy ever diagnosed 8. MFM recommended thrombophilia panel due to father's history of DVT/clotting disorder and will be done with 26 week labs, and growth US's due to history and meds, 8a. MFM referral at 22 weeks as Mary prefer to do [place] [facility] 8b. US @ 28 wks=80%ile TREVOR 19.5. Repeated @ 32 wks =EFW 38%ile, TREVOR 14.2 8c. Interval growth at 37 wks ___ Assessment: History Reviewed & Current Informed Consent Informed Consent: Induction of Labor (via cervical ripening) and Risk,Benefits,Alternatives Discussed Review of Systems Narrative: ROS completed and found to be non contributory other then [facility] PFSH All Active Problems (Updated 04/02/23 @ 16:06 by Maty Cotto) Pre-eclampsia complicating hypertension (Acute) Gestational hypertension (Acute) Drug exposure, gestational (Acute) Medication exposure during first trimester of (Acute) Hypersomnia (Acute ~11/2022) 11/08/22 Psych visit 02/06/23 Psych vs. 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 states she had a complete work-up when she was 15, and hasn't had any issues with it since. 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 Confirmed: 7-week empty gestational sac Narcolepsy Pt. 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 Had 2 seizures after; normal eeg. Last seizure 2015 Surgical History H/O dilation and curettage Family History Mother Anxiety Hypertension Dx'ed in her 30s ADHD Hypersomnia High cholesterol Sister Anxiety Paternal Aunt Cancer Colon cancer Paternal Uncle Cancer Paternal Grandmother Cancer Colon cancer Maternal Grandmother Anxiety Maternal Aunt Heart disease Father Hypertension Dx'ed in his 30s Prostate cancer High cholesterol Clotting disorder 3 DVT's unknown clotting disorder on blood thinners Social History Smoking/Tobacco Use Status: Never Smoking risk assessment performed?: Yes Alcohol Intake: current Alcohol Intake frequency: holidays/special occasions only Drug use: Never Substance use type: does not use Details: alcohol: unknown Adopted: No Caregiver/Support person: Yes Foster care: No Household members: spouse and children Housing: house Number of Children: 1 Communication Needs: None Education Level: college Details: Bachelor's Degree Do you need help understanding health information?: Never 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, 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- [employer] Pets and animals: Yes Pets and animals: cat(s) and dog(s) Sexually active: Yes Do you think of yourself as: straight/heterosexual Current gender identity: female What is your relationship status?: living with partner How often do you talk on the phone with friends or family?: three or more times per week How often do you get together with friends or relatives?: three or more times per week Do you belong to any clubs or organized social groups?: yes Panel score (0-1 are the most socially isolated patients): 3 What type of physical activity do you participate in: regular exercise and running Duration: 30-45 minutes/day Frequency: 3-4 times per week Andie/Hinduism: Mosque Special andie needs: No Seatbelt use: always Helmet use: Yes Drive intox or ride w/intox tow driver: No Working smoke detector in home: Yes Fire extinguisher in home: Yes Carbon monox detector in home: Yes Do you feel safe at home: Yes Do you feel safe in your relationship?: Yes History History 5 Para 1 Hx # Term Pregnancies 1 Multiple births 0 Hx # Pregnancies 0 Ectopic pregnancies 0 AB induced 0 Hx Number of Living Children 1 AB spontaneous 3 Past Pregnancies Del. Date GA/Weeks # Preg Succ Route Wgt Sex Labor Lgth Anesthesia Location Prov Complic 01/13/19 38 No Yes vaginal 8 lb 2 oz Male 14 regional [facility] other 05/17/21 6 No No 08/16/21 5 No 05/16/22 5 No No Delivery Date: 01/13/19 Last Updated by: Natalia Bunn CNM induced for pre-e, balloon and 50 mcg miso PV and pitocin at 7 cms, 9 min second stage. second degree perineal, no magnesium, [place] Delivery Date: 05/17/21 Last Updated by: Natalia Alvarez CNM blighted ovum, D&C Delivery Date: 08/16/21 Last Updated by: Natalia Alvarez CNM SAB no D&C Delivery Date: 05/16/22 Last Updated by: Natalia Alvarez CNM SAB no D&C Meds Allergies and Home Medications Allergies Allergy/AdvReac Type Severity Reaction Status Date / Time Sulfa (Sulfonamide Allergy Intermediate Hives Verified 03/21/23 15:09 Antibiotics) prochlorperazine AdvReac Intermediate dizziness, Verified 03/21/23 15:09 [From Compazine] disoriented environmental Allergy Intermediate Uncoded 03/21/23 15:09 Home Medications Medication Instructions Recorded Confirmed Type vitamin with calcium 1 tab PO DAILY #90 tabs 09/05/22 03/21/23 Rx no.72-iron 27 mg-folic acid 1 mg tablet magnesium 250 mg tablet 250 mg PO DAILY 10/09/22 03/21/23 History aspirin 81 mg tablet,delayed 81 mg PO DAILY #90 tabs 11/22/22 03/21/23 Rx release lorazepam 0.5 mg tablet (Ativan) 0.5 mg PO BID PRN anxiety #20 tabs 11/22/22 03/21/23 Rx sertraline 50 mg tablet (Zoloft) 100 mg PO DAILY 11/22/22 03/21/23 History dextroamphetamine-amphetamine ER 10 mg PO DAILY 12/18/22 03/21/23 History 10 mg 24hr capsule,extend release (Adderall XR) ondansetron 4 mg disintegrating 4 mg PO Q6H PRN nausea and 01/14/23 03/21/23 Rx tablet vomiting #60 tabs famotidine 10 mg tablet 10 mg PO BID #60 tabs 02/07/23 03/21/23 Rx dextroamphetamine-amphetamine ER 10 mg PO DAILY 03/21/23 History 20 mg 24hr capsule,extend release (Adderall XR) hydroxyzine pamoate 50 mg capsule 100 mg PO BID PRN anxiety, 03/30/23 Rx (Vistaril) headache #30 caps promethazine 25 mg tablet 25 mg PO Q6H PRN nausea #20 tabs 03/30/23 Rx Exam Physical Exam Vital Signs Reviewed: Yes Narrative: Labile BP's borderline and mild range Constitutional Constitutional: mild distress (from headache), average body habitus and cooperative Detailed Labor and Delivery Exam Dilation: 1 Effacement (%): 20 station: -4 Cervix position: posterior Consistency: firm BONNER Score(Cervical Ripeness Score): 1 Amniotic Membrane Status: Intact Contraction Frequency(min): 0 Fetus A Heart Rate Baseline: 140 Monitor Accelerations: 15 X 15 Monitor Decelerations: None Variability: Moderate (6-25 BPM) Categories: Category I Est. Weight: 7 lb 0.877 oz Est. Weight: 3200 gms HEENT Exam HEENT Exam: Normal Neck Exam Neck Exam: Normal Chest/Brest/Axilla Exam Chest Exam: Normal Breast Exam Breast Exam: Not Done Respiratory Exam Respiratory Exam: Normal Cardiovascular Exam Cardiovascular Exam: Normal Abdominal Exam Abdominal Exam: Normal (Gravid, nontender) Rectal Exam Rectal Exam: Normal Exam Exam: Normal Extremities Exam Extremities Exam: Normal Back/Spine/Pelvis Exam Back Exam: Normal Pelvis Adequate: Yes (proven to 8'2) Skin Exam Skin Exam: Normal Neurological Exam Neurological Exam: Normal Detailed Neurological Exam Comments: normoreflexic Psychiatric Exam Psychiatric Exam: Normal Results Results Group Beta Strep: Negative Blood Type: A+ Rubella Status: Immune Varicella Immunity: Immune Abnormal Lab Findings: Abnormal Labs 04/02/23 04/02/23 13:36 13:36 RBC 3.83 L Hct 32.8 L MPV 11.2 H Carbon Dioxide 20.3 L Anion Gap 11.7 H Glucose 107 H Calcium 8.3 L Alkaline Phosphatase 178 H Albumin 2.5 L Risk Assessment Risk for Shoulder Dystocia Historical/Initial OB: NEGATIVE FOR: Pelvic Abnormality, Pre- BMI>30, Previous Shoulder Dystocia or Previous Macrosomia 36 Weeks: NEGATIVE FOR: Current Gestational DM, EFW>4500gms or Maternal Weight Gain>40lbs Increased Risk?: No Date/Initial: 09/26/22 Delivery Plan @ 36wks: Risk for Pre-Eclampsia Date Initiated/Initials: start @ 12 wks. JK 09/05/22 Yes, if one or more: POSTIVE FOR: Hx Pre-E/Gest HTN and Chronic HTN; NEGATIVE FOR: Multiple Gestation, Pre-gestational DM, Renal Disease, Systemic Lupus or APA Syndrome Yes, if 2 or more: POSITIVE FOR: Age>= 35 yrs and Mother/Sister w/ Pre-E (Mother had pre-eclampsia); NEGATIVE FOR: Nulliparity, >10yr btwn pregnancies, BMI>30, ethinicty or Previous IUGR Risk for Post- Hemorrhage Initial: POSITIVE FOR: Known Clotting Deficiency (Patient's father has unidentified clotting disorder); NEGATIVE FOR: Multiple Gestation, Previous PPH, Grand Multiparity or Anticoagulation 36 Weeks: POSITIVE FOR: Gestational HTN or Pre-E; NEGATIVE FOR: Anemia, hgb<10, Low platelets(thrombocytopenia), Polyhydraminios or EFW>4500gms At Risk?: Yes Counseled re: Active Management: Yes Date/Initials: 09/26/22 BREANNE Risks Reviewed Risks Reviewed Upon Admission: Yes
[2023-04-02 16:30] VITALS: BP 136/89; PULSE 76; RESP 18; TEMP 36.7; O2SAT 99
[2023-04-02 19:12] VITALS: BP 141/83; PULSE 84; RESP 16; TEMP 36.5
[2023-04-02] MEDS: Zolpidem 5 MG TAB 10 MG PO (21:00)
[2023-04-03] VITALS (158 sets, daily range): BP systolic 120–168; BP diastolic 65–93; PULSE 0–114; RESP 16; TEMP 36.4–37.4; O2SAT 97–100; BMI 32.5
--- NOTE | 2023-04-03 07:00 | PGE_ITS ---
Date of service: 04/03/23 Time of Service: 07:00 Informed Consent Informed Consent: Induction of Labor (via cervical ripening) and Risk,Benefits,Alternatives Discussed Pelvic Exam Dilation: 3 Effacement (%): 20 station: -4 Cervix Position: posterior Consistency: soft BISHOPS Score(Cervical Ripeness Score): 4 Assessment and Plan Assessment and plan (1) Pre-eclampsia complicating hypertension: Status: Acute Assessment and plan: A: IOL for pre-eclampsia Cortez score advanced to 4 Category 1 tracing P: Continue ripening w/Misoprostol 50 mcg PO Hand-off care to PARI Alvarez (2) Encounter for induction of labor: Status: Acute Objective Abnormal lab results 04/02/23 04/02/23 Range/Units 13:36 13:36 RBC 3.83 L (3.93-5.22) 10^6/uL Hct 32.8 L (36.0-46.0) % MPV 11.2 H (8.0-11.0) fL Carbon Dioxide 20.3 L (21.0-32.0) mmol/L Anion Gap 11.7 H (3-11) mmol/L Glucose 107 H (74-106) mg/dL Calcium 8.3 L (8.5-10.1) mg/dL Alkaline Phosphatase 178 H (46-116) U/L Albumin 2.5 L (3.4-5.0) g/dL Temp Pulse Resp BP Pulse Ox 97.7 F 84 16 141/83 H 99 04/02/23 19:12 04/02/23 19:12 04/02/23 19:12 04/02/23 19:12 04/02/23 16:30 Laboratory Results WBC 10.12 10^3/uL (4.4-10.8) 04/02/23 13:36 RBC 3.83 10^6/uL (3.93-5.22) L 04/02/23 13:36 Hgb 11.5 g/dL (11.2-15.7) 04/02/23 13:36 Hct 32.8 % (36.0-46.0) L 04/02/23 13:36 MCV 86 fL (80-95) 04/02/23 13:36 MCH 30.0 pg (27.0-33.0) 04/02/23 13:36 MCHC 35.1 % (32.0-36.0) 04/02/23 13:36 RDW 12.8 % (11.7-14.6) 04/02/23 13:36 Plt Count 199 10^3/uL (130-400) 04/02/23 13:36 MPV 11.2 fL (8.0-11.0) H 04/02/23 13:36 Sodium 136 mmol/L (136-145) 04/02/23 13:36 Potassium 3.9 mmol/L (3.5-5.1) 04/02/23 13:36 Chloride 104 mmol/L (98-107) 04/02/23 13:36 Carbon Dioxide 20.3 mmol/L (21.0-32.0) L 04/02/23 13:36 Anion Gap 11.7 mmol/L (3-11) H 04/02/23 13:36 BUN 14 mg/dL (7-18) 04/02/23 13:36 Creatinine 0.7 mg/dL (0.55-1.02) 04/02/23 13:36 Est GFR (CKD-EPI 2020) 113.46 (mL/min/1.73m2) 04/02/23 13:36 Glucose 107 mg/dL (74-106) H 04/02/23 13:36 Calcium 8.3 mg/dL (8.5-10.1) L 04/02/23 13:36 Total Bilirubin 0.2 mg/dL (0.2-1.0) 04/02/23 13:36 AST 23 U/L (15-37) 04/02/23 13:36 ALT 26 U/L (14-59) 04/02/23 13:36 Alkaline Phosphatase 178 U/L (46-116) H 04/02/23 13:36 Total Protein 6.9 g/dL (6.4-8.2) 04/02/23 13:36 Albumin 2.5 g/dL (3.4-5.0) L 04/02/23 13:36 Ur Random Creatinine 23.72 mg/dL 04/02/23 13:20 U Random Total Protein 9.3 mg/dL 04/02/23 13:20 U [place] Prot/Creat Ratio 0.39 04/02/23 13:20 Patient ABO/Rh A Positive 04/02/23 15:50 Antibody Screen NEGATIVE 04/02/23 15:50 Subjective Interval history since last seen: Pt slept well after taking Ambien, Cook catheter came out spontaneously at 2100 last night, minor vaginal bleeding noted at the time.
[2023-04-03] MEDS: miSOPROStol 50 MCG TAB PO (07:25)
--- NOTE | 2023-04-03 08:02 | ANES.PREOP_ITS ---
General Info Date of Service Date Performed: 04/03/23 Height: 5 ft 7 in Weight: 94.347 kg Body Mass Index (BMI): 32.5 Meds Allergies and Home Medications Allergies Allergy/AdvReac Type Severity Reaction Status Date / Time Sulfa (Sulfonamide Allergy Intermediate Hives Verified 03/21/23 15:09 Antibiotics) prochlorperazine AdvReac Intermediate dizziness, Verified 03/21/23 15:09 [From Compazine] disoriented environmental Allergy Intermediate Uncoded 03/21/23 15:09 Home Medication Medication Instructions Recorded vitamin with calcium 1 tab PO DAILY #90 tabs 09/05/22 no.72-iron 27 mg-folic acid 1 mg tablet magnesium 250 mg tablet 250 mg PO DAILY 10/09/22 aspirin 81 mg tablet,delayed 81 mg PO DAILY #90 tabs 11/22/22 release lorazepam 0.5 mg tablet (Ativan) 0.5 mg PO BID PRN anxiety #20 tabs 11/22/22 sertraline 50 mg tablet (Zoloft) 100 mg PO DAILY 11/22/22 dextroamphetamine-amphetamine ER 10 mg PO DAILY 12/18/22 10 mg 24hr capsule,extend release (Adderall XR) ondansetron 4 mg disintegrating 4 mg PO Q6H PRN nausea and 01/14/23 tablet vomiting #60 tabs famotidine 10 mg tablet 10 mg PO BID #60 tabs 02/07/23 dextroamphetamine-amphetamine ER 10 mg PO DAILY 03/21/23 20 mg 24hr capsule,extend release (Adderall XR) hydroxyzine pamoate 50 mg capsule 100 mg PO BID PRN anxiety, 03/30/23 (Vistaril) headache #30 caps promethazine 25 mg tablet 25 mg PO Q6H PRN nausea #20 tabs 03/30/23 Current Visit Medications: Current Medications Generic Name Dose Route Start Last Admin Trade Name Freq PRN Reason Stop Dose Admin Amphetamine Aspartate/Amphetam Sulf 10 mg 04/03/23 08:00 04/03/23 07:50 Amphet Asp/Amphet/D-Amphet 10 Mg Capcr PO 10 mg BID@0800,1200 CARLOS Administration Famotidine 10 mg 04/02/23 20:00 04/02/23 21:05 Famotidine 20 Mg Tab PO Not Given BID CARLOS Ringer's Solution 1,000 mls @ 125 mls/hr 04/03/23 06:00 IV INFUSION CARLOS Sodium Chloride 500 mls @ 0 mls/hr 04/02/23 15:39 Saline 500ml Bag IV PRN PRN As Directed IV Miscellaneous Supplies 1 each 04/02/23 15:45 Iv Access IV DIRECTED CARLOS Ondansetron HCl 4 mg 04/02/23 15:56 Ondansetron O.D.T. 4 Mg Tabef PO Q6H PRN nausea and vomiting Sertraline HCl 100 mg 04/03/23 08:30 Sertraline 50 Mg Tab PO DAILY CARLOS Sodium Chloride 0 ml 04/02/23 15:39 Normal Saline Flush 10 Ml Syr IVP PRN PRN Sodium Chloride 0 ml 04/02/23 15:39 Normal Saline Flush 10 Ml Syr IVP PRN PRN PFSH Active Problems Active Problems: Problem Status Onset Code Encounter for induction of labor Z34.90 Pre-eclampsia complicating hypertension O11.9 Gestational hypertension O13.9 Drug exposure, gestational P04.9 Medication exposure during first trimester of O09.891 Hypersomnia ~11/2022 G47.10 Advanced maternal age in multigravida O09.529 Stage 1 hypertension I10 Z34.90 ADHD ~2004 F90.9 Hypersomnia G47.10 Anxiety F41.9 Medical History Medical History (Updated 04/03/23 @ 07:02 by Maty Cotto) Abnormal EEG status post head injury, had seizure that resolved, 2016 Acute torticollis 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 states she had a complete work-up when she was 15, and hasn't had any issues with it since. History of pre-eclampsia Hyperlipidemia (~08/2021) Familial, LDL 164 Infertility management Migraine headache without aura (~2019) [facility] Missed 05/23/2021. Confirmed: 7-week empty gestational sac Narcolepsy Pt. 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 Had 2 seizures after; normal eeg. Last seizure 2016 Surgical History Surgical History (Reviewed 10/11/22 @ 16:39 by MARY Quarles H/O dilation and curettage Tobacco Smoking/Tobacco Use Status: Never Passive smoking exposure: No Alcohol Alcohol Intake: current Alcohol intake frequency: holidays/special occasions only Substance Use Substance use: Never Substance use type: does not use Details: alcohol: unknown Prental History History 5 Para 1 Hx # Term Pregnancies 1 Multiple births 0 Hx # Pregnancies 0 Ectopic pregnancies 0 AB induced 0 Hx Number of Living Children 1 AB spontaneous 3 Past Pregnancies Del. Date GA/Weeks # Preg Succ Route Wgt Sex Labor Lgth Anesth esia Location Prov Complic 01/13/19 38 No Yes vaginal 3685.438 g Male 14 regional U [facility] other 05/17/21 6 No No 08/16/21 5 No 05/16/22 5 No No Delivery Date: 01/13/19 Last Updated by: Natalia Bunn CNM induced for pre-e, balloon and 50 mcg miso PV and pitocin at 7 cms, 9 min second stage. second degree perineal, no magnesium, Wesley Delivery Date: 05/17/21 Last Updated by: Natalia Alvarez CNM blighted ovum, D&C Delivery Date: 08/16/21 Last Updated by: Natalia Alvarez CNM SAB no D&C Delivery Date: 05/16/22 Last Updated by: Natalia Alvarez CNM SAB no D&C Vital Signs and Lab Results Vital Signs Most Recent Vital Signs in EMR: Most Recent Vital Signs Temp Pulse Resp BP Pulse Ox 36.4 C L 88 16 123/86 99 04/03/23 07:14 04/03/23 07:06 04/03/23 07:14 04/03/23 07:06 04/03/23 07:14 Lab Results 04/02/23 13:36 04/02/23 13:36 Blood Type / Crossmatch: Patient ABO/Rh A Positive 04/02/23 Antibody Screen NEGATIVE 04/02/23 Complete Blood Count: White Blood Count 10.12 10^3/uL (4.4-10.8) 04/02/23 13:36 Red Blood Count 3.83 10^6/uL (3.93-5.22) L 04/02/23 13:36 Hemoglobin 11.5 g/dL (11.2-15.7) 04/02/23 13:36 Hematocrit 32.8 % (36.0-46.0) L 04/02/23 13:36 Platelet Count 199 10^3/uL (130-400) 04/02/23 13:36 Complete Metabolic Panel: Sodium 136 mmol/L (136-145) 04/02/23 13:36 Potassium 3.9 mmol/L (3.5-5.1) 04/02/23 13:36 Chloride 104 mmol/L (98-107) 04/02/23 13:36 Carbon Dioxide 20.3 mmol/L (21.0-32.0) L 04/02/23 13:36 BUN 14 mg/dL (7-18) 04/02/23 13:36 Creatinine 0.7 mg/dL (0.55-1.02) 04/02/23 13:36 Est GFR (CKD-EPI 2020) 113.46 (mL/min/1.73m2) 04/02/23 13:36 Calcium 8.3 mg/dL (8.5-10.1) L 04/02/23 13:36 Albumin 2.5 g/dL (3.4-5.0) L 04/02/23 13:36 Glucose 107 mg/dL (74-106) H 04/02/23 13:36 Liver Function Panel: Alanine Aminotransferase (ALT/SGPT) 26 U/L (14-59) 04/02/23 13: 36 Aspartate Amino Transf (AST/SGOT) 23 U/L (15-37) 04/02/23 13:36 Coagulation Panel: No Data to Display Cardiac Panel: No Data to Display Arterial Blood Gas: No Data to Display Venous Blood Gas: No Data to Display Pancreas Panel: No Data to Display Thyroid Panel: No Data to Display Infectious Disease: No Data to Display Blood Cultures: No Data to Display Toxicology Panel: No Data to Display Panel: No Data to Display Anesthesia Assessment and Plan Anesthesia History Personal History: No History of Anesthesia Complications Family History: No Family History of Anesthesia Complications Exercise Tolerance Exercise Tolerance: Metabolic Equivalents>4 Pertinent Negatives Pertinent Negatives: No Major Cardiovascular Symptoms or Complaints and No Major Pulmonary Symptoms or Complaints Cardiac & Pulmonary Exam Cardiac Exam: Normal S1/S2 Heart Sounds Pulmonary Exam: Clear Bilateral Breath Sounds Implantable Cardiac Device Does patient have a Pacemaker or an ICD?: No Airway Exam Known Difficult Airway: No Mallampati Class: 2 Mouth Opening: Normal (> 3cm) Thyromental Distance: Greater than 3 cm Neck Range of Motion: Full ROM Neck Circumference: Normal Teeth Condition: Normal Dentition ASA Classification ASA Score: ASA 3 Emergency Case?: No NPO Status NPO Status: Full Stomach Status Status: Confirmed Anesthesia Plan Resuscitation Status: Full Code Anesthesia Technique: Epidural Anesthesia Airway Planned: Natural Airway Pain Management: Epidural Monitors Used: Standard Monitors
--- NOTE | 2023-04-03 09:36 | PGE_ITS ---
Date of service: 04/03/23 Time of Service: 08:10 Informed Consent Informed Consent: Induction of Labor (via cervical ripening) and Risk,Benefits,Alternatives Discussed Pelvic Exam Comments: VE deferred Contractions Monitor Mode: External Contraction Frequency(min): irreg Contraction Duration(sec): irreg Intensity: Mild Fetus A Monitor: External (US) Heart Rate Baseline: 135 Variability: Moderate (6-25 BPM) Categories: Category I Accelerations: 15 X 15 Assessment and Plan Assessment and plan (1) Pre-eclampsia complicating hypertension: Status: Acute Assessment and plan: 1. discussed use of misoprostol for cervical ripening. Risks and benefits as well as associated procedures reviewed. She would like to move forward with this this morning. 2. Currently VS are stable and patient denies signs of pre-eclamspia.KH Objective Abnormal lab results 04/02/23 04/02/23 Range/Units 13:36 13:36 RBC 3.83 L (3.93-5.22) 10^6/uL Hct 32.8 L (36.0-46.0) % MPV 11.2 H (8.0-11.0) fL Carbon Dioxide 20.3 L (21.0-32.0) mmol/L Anion Gap 11.7 H (3-11) mmol/L Glucose 107 H (74-106) mg/dL Calcium 8.3 L (8.5-10.1) mg/dL Alkaline Phosphatase 178 H (46-116) U/L Albumin 2.5 L (3.4-5.0) g/dL Temp Pulse Resp BP Pulse Ox 97.5 F L 88 16 123/86 99 04/03/23 07:14 04/03/23 07:06 04/03/23 07:14 04/03/23 07:06 04/03/23 07:14 Laboratory Results WBC 10.12 10^3/uL (4.4-10.8) 04/02/23 13:36 RBC 3.83 10^6/uL (3.93-5.22) L 04/02/23 13:36 Hgb 11.5 g/dL (11.2-15.7) 04/02/23 13:36 Hct 32.8 % (36.0-46.0) L 04/02/23 13:36 MCV 86 fL (80-95) 04/02/23 13:36 MCH 30.0 pg (27.0-33.0) 04/02/23 13:36 MCHC 35.1 % (32.0-36.0) 04/02/23 13:36 RDW 12.8 % (11.7-14.6) 04/02/23 13:36 Plt Count 199 10^3/uL (130-400) 04/02/23 13:36 MPV 11.2 fL (8.0-11.0) H 04/02/23 13:36 Sodium 136 mmol/L (136-145) 04/02/23 13:36 Potassium 3.9 mmol/L (3.5-5.1) 04/02/23 13:36 Chloride 104 mmol/L (98-107) 04/02/23 13:36 Carbon Dioxide 20.3 mmol/L (21.0-32.0) L 04/02/23 13:36 Anion Gap 11.7 mmol/L (3-11) H 04/02/23 13:36 BUN 14 mg/dL (7-18) 04/02/23 13:36 Creatinine 0.7 mg/dL (0.55-1.02) 04/02/23 13:36 Est GFR (CKD-EPI 2020) 113.46 (mL/min/1.73m2) 04/02/23 13:36 Glucose 107 mg/dL (74-106) H 04/02/23 13:36 Calcium 8.3 mg/dL (8.5-10.1) L 04/02/23 13:36 Total Bilirubin 0.2 mg/dL (0.2-1.0) 04/02/23 13:36 AST 23 U/L (15-37) 04/02/23 13:36 ALT 26 U/L (14-59) 04/02/23 13:36 Alkaline Phosphatase 178 U/L (46-116) H 04/02/23 13:36 Total Protein 6.9 g/dL (6.4-8.2) 04/02/23 13:36 Albumin 2.5 g/dL (3.4-5.0) L 04/02/23 13:36 Ur Random Creatinine 23.72 mg/dL 04/02/23 13:20 U Random Total Protein 9.3 mg/dL 04/02/23 13:20 U [place] Prot/Creat Ratio 0.39 04/02/23 13:20 Patient ABO/Rh A Positive 04/02/23 15:50 Antibody Screen NEGATIVE 04/02/23 15:50 Subjective Interval history since last seen: Jada is feeling well this morning. Slept well. Ready to move forward with misoprostol. KH Results Hemoglobin/Hematocrit: Hgb 11.5 g/dL (11.2-15.7) 04/02/23 13:36 Hct 32.8 % (36.0-46.0) L 04/02/23 13:36 Abnormal Lab Findings: Abnormal Labs 04/02/23 04/02/23 13:36 13:36 RBC 3.83 L Hct 32.8 L MPV 11.2 H Carbon Dioxide 20.3 L Anion Gap 11.7 H Glucose 107 H Calcium 8.3 L Alkaline Phosphatase 178 H Albumin 2.5 L
--- NOTE | 2023-04-03 11:33 | W.PM.OBNL1 ---
Date of service: 04/03/23 Time of Service: 11:25 Informed Consent Informed Consent: Induction of Labor (via cervical ripening) and Risk,Benefits,Alternatives Discussed Pelvic Exam Dilation: 4 Effacement (%): 80 station: -2 Position: ROP Cervix Position: mid Consistency: soft BISHOPS Score(Cervical Ripeness Score): 9 Contractions Monitor Mode: External Contraction Frequency(min): 3 Contraction Duration(sec): 60 Intensity: Moderate/Strong Fetus A Monitor: External (US) Heart Rate Baseline: 135 Presentation: Cephalic Variability: Moderate (6-25 BPM) Categories: Category I Amniotic Membrane Status: Intact Assessment and Plan Assessment and plan (1) Encounter for induction of labor: Status: Acute Assessment and plan: 1. VS stable, denies GONZALES, visual disturbance or epigastric pain. 2. Will continue to support labor and management as indicated. KH Objective Abnormal lab results 04/02/23 04/02/23 Range/Units 13:36 13:36 RBC 3.83 L (3.93-5.22) 10^6/uL Hct 32.8 L (36.0-46.0) % MPV 11.2 H (8.0-11.0) fL Carbon Dioxide 20.3 L (21.0-32.0) mmol/L Anion Gap 11.7 H (3-11) mmol/L Glucose 107 H (74-106) mg/dL Calcium 8.3 L (8.5-10.1) mg/dL Alkaline Phosphatase 178 H (46-116) U/L Albumin 2.5 L (3.4-5.0) g/dL Temp Pulse Resp BP Pulse Ox 97.5 F L 80 16 136/86 99 04/03/23 07:14 04/03/23 11:10 04/03/23 07:14 04/03/23 11:10 04/03/23 07:14 Laboratory Results WBC 10.12 10^3/uL (4.4-10.8) 04/02/23 13:36 RBC 3.83 10^6/uL (3.93-5.22) L 04/02/23 13:36 Hgb 11.5 g/dL (11.2-15.7) 04/02/23 13:36 Hct 32.8 % (36.0-46.0) L 04/02/23 13:36 MCV 86 fL (80-95) 04/02/23 13:36 MCH 30.0 pg (27.0-33.0) 04/02/23 13:36 MCHC 35.1 % (32.0-36.0) 04/02/23 13:36 RDW 12.8 % (11.7-14.6) 04/02/23 13:36 Plt Count 199 10^3/uL (130-400) 04/02/23 13:36 MPV 11.2 fL (8.0-11.0) H 04/02/23 13:36 Sodium 136 mmol/L (136-145) 04/02/23 13:36 Potassium 3.9 mmol/L (3.5-5.1) 04/02/23 13:36 Chloride 104 mmol/L (98-107) 04/02/23 13:36 Carbon Dioxide 20.3 mmol/L (21.0-32.0) L 04/02/23 13:36 Anion Gap 11.7 mmol/L (3-11) H 04/02/23 13:36 BUN 14 mg/dL (7-18) 04/02/23 13:36 Creatinine 0.7 mg/dL (0.55-1.02) 04/02/23 13:36 Est GFR (CKD-EPI 2020) 113.46 (mL/min/1.73m2) 04/02/23 13:36 Glucose 107 mg/dL (74-106) H 04/02/23 13:36 Calcium 8.3 mg/dL (8.5-10.1) L 04/02/23 13:36 Total Bilirubin 0.2 mg/dL (0.2-1.0) 04/02/23 13:36 AST 23 U/L (15-37) 04/02/23 13:36 ALT 26 U/L (14-59) 04/02/23 13:36 Alkaline Phosphatase 178 U/L (46-116) H 04/02/23 13:36 Total Protein 6.9 g/dL (6.4-8.2) 04/02/23 13:36 Albumin 2.5 g/dL (3.4-5.0) L 04/02/23 13:36 Ur Random Creatinine 23.72 mg/dL 04/02/23 13:20 U Random Total Protein 9.3 mg/dL 04/02/23 13:20 U [place] Prot/Creat Ratio 0.39 04/02/23 13:20 Patient ABO/Rh A Positive 04/02/23 15:50 Antibody Screen NEGATIVE 04/02/23 15:50 Vital Signs Reviewed: Yes Subjective Interval history since last seen: Feeling strong contractions every 3 minutes. Denies LOF or show. Requests VE. KH Results Hemoglobin/Hematocrit: Hgb 11.5 g/dL (11.2-15.7) 04/02/23 13:36 Hct 32.8 % (36.0-46.0) L 04/02/23 13:36 Abnormal Lab Findings: Abnormal Labs 04/02/23 04/02/23 13:36 13:36 RBC 3.83 L Hct 32.8 L MPV 11.2 H Carbon Dioxide 20.3 L Anion Gap 11.7 H Glucose 107 H Calcium 8.3 L Alkaline Phosphatase 178 H Albumin 2.5 L
[2023-04-03] MEDS: Lactated Ringers 1,000 ML 125 ML IV (13:00)
[2023-04-03] MEDS: Lactated Ringers 250 ML 500 ML IV (13:00)
--- NOTE | 2023-04-03 13:26 | PGE_ITS ---
Date of service: 04/03/23 Time of Service: 13:26 Informed Consent Informed Consent: Induction of Labor (via cervical ripening) and Risk,Benefits,Alternatives Discussed Pelvic Exam Dilation: 6 Effacement (%): 80 station: -1 Cervix Position: mid Consistency: soft Comments: AROM clear fluid with bloody show Contractions Monitor Mode: External Contraction Frequency(min): 2-3 Contraction Duration(sec): 60 Intensity: Moderate/Strong Fetus A Monitor: External (US) Heart Rate Baseline: 150 Variability: Moderate (6-25 BPM) Categories: Category I Accelerations: Present Decelerations: None Amniotic Membrane Status: Ruptured Rupture Method: Artifical Amniotic Fluid: Clear Amount: large Date of Membrane Rupture: 04/03/23 Time of Membrane Rupture: 13: Assessment and Plan Assessment and plan (1) Encounter for induction of labor: Status: Acute Assessment and plan: 1. Labor progressing normally 2. FHR CAT I 3. Epidural in place and has good effect 4. AROM per patient request, clear fluid with some bloody show 5. Expect NVD. KH Objective Abnormal lab results 04/02/23 04/02/23 Range/Units 13:36 13:36 RBC 3.83 L (3.93-5.22) 10^6/uL Hct 32.8 L (36.0-46.0) % MPV 11.2 H (8.0-11.0) fL Carbon Dioxide 20.3 L (21.0-32.0) mmol/L Anion Gap 11.7 H (3-11) mmol/L Glucose 107 H (74-106) mg/dL Calcium 8.3 L (8.5-10.1) mg/dL Alkaline Phosphatase 178 H (46-116) U/L Albumin 2.5 L (3.4-5.0) g/dL Temp Pulse Resp BP Pulse Ox 97.5 F L 0 L 16 135/75 100 04/03/23 07:14 04/03/23 13:24 04/03/23 07:14 04/03/23 13:19 04/03/23 13:20 Laboratory Results WBC 10.12 10^3/uL (4.4-10.8) 04/02/23 13:36 RBC 3.83 10^6/uL (3.93-5.22) L 04/02/23 13:36 Hgb 11.5 g/dL (11.2-15.7) 04/02/23 13:36 Hct 32.8 % (36.0-46.0) L 04/02/23 13:36 MCV 86 fL (80-95) 04/02/23 13:36 MCH 30.0 pg (27.0-33.0) 04/02/23 13:36 MCHC 35.1 % (32.0-36.0) 04/02/23 13:36 RDW 12.8 % (11.7-14.6) 04/02/23 13:36 Plt Count 199 10^3/uL (130-400) 04/02/23 13:36 MPV 11.2 fL (8.0-11.0) H 04/02/23 13:36 Sodium 136 mmol/L (136-145) 04/02/23 13:36 Potassium 3.9 mmol/L (3.5-5.1) 04/02/23 13:36 Chloride 104 mmol/L (98-107) 04/02/23 13:36 Carbon Dioxide 20.3 mmol/L (21.0-32.0) L 04/02/23 13:36 Anion Gap 11.7 mmol/L (3-11) H 04/02/23 13:36 BUN 14 mg/dL (7-18) 04/02/23 13:36 Creatinine 0.7 mg/dL (0.55-1.02) 04/02/23 13:36 Est GFR (CKD-EPI 2020) 113.46 (mL/min/1.73m2) 04/02/23 13:36 Glucose 107 mg/dL (74-106) H 04/02/23 13:36 Calcium 8.3 mg/dL (8.5-10.1) L 04/02/23 13:36 Total Bilirubin 0.2 mg/dL (0.2-1.0) 04/02/23 13:36 AST 23 U/L (15-37) 04/02/23 13:36 ALT 26 U/L (14-59) 04/02/23 13:36 Alkaline Phosphatase 178 U/L (46-116) H 04/02/23 13:36 Total Protein 6.9 g/dL (6.4-8.2) 04/02/23 13:36 Albumin 2.5 g/dL (3.4-5.0) L 04/02/23 13:36 Ur Random Creatinine 23.72 mg/dL 04/02/23 13:20 U Random Total Protein 9.3 mg/dL 04/02/23 13:20 U [place] Prot/Creat Ratio 0.39 04/02/23 13:20 Patient ABO/Rh A Positive 04/02/23 15:50 Antibody Screen NEGATIVE 04/02/23 15:50 Vital Signs Reviewed: Yes Subjective Interval history since last seen: Epidural is in place and Mary is comfortable. Requested VE and AROM. KH Results Hemoglobin/Hematocrit: Hgb 11.5 g/dL (11.2-15.7) 04/02/23 13:36 Hct 32.8 % (36.0-46.0) L 04/02/23 13:36 Abnormal Lab Findings: Abnormal Labs 04/02/23 04/02/23 13:36 13:36 RBC 3.83 L Hct 32.8 L MPV 11.2 H Carbon Dioxide 20.3 L Anion Gap 11.7 H Glucose 107 H Calcium 8.3 L Alkaline Phosphatase 178 H Albumin 2.5 L
--- NOTE | 2023-04-03 13:31 | W.ANESNEU ---
Epidural/Spinal Catheter Date Performed: 04/03/23 Procedure Start: 12:55 Procedure Stop: 13:15 Requesting Provider: Natalia Alvarez Procedure Location: Obstetrics Reason Performed: Labor Epidural Standard Monitors Applied: Blood Pressure, SpO2 and See EMR for corresponding vital signs Patient Position: Sitting Sedation Given (Indicate Dose Given): No Sedation given Patient Mental Status: Awake Sterility: Hand Hygiene, Surgical Cap, Surgical Mask, Sterile Gloves, Sterile Drape/Sheet and Chlorhexidine Procedure Location: L3-L4 Interspace Epidural Needle: Tuohy 18 Gauge Needle Length: 3.5 Inch Needle Approach: Midline Epidural Procedure: Skin Prepped, Sterile Drape Placed, 1% Lidocaine to skin and subcutaneous tissue with 25G needle, Tuohy Needle placed, CODEY to Saline Used, Epidural Catheter Placed, Negative Heme, Negative CSF Flow and Tuohy Needle Removed Catheter Placed?: Catheter Placed Test Dose (Indicate Dose Given): 3ml 1.5% Lidocaine with 1:200K Epinephrine Given Loss of Resistance Depth (cm): 7 Catheter depth at skin (cm): 15 Dressing: [place] Dressing Placed, Tegaderm Applied, Mastisol Used and Dressing reinforced with Tape Epidural Provider Bolus (Indicate Dose Given): Total bolus dose given in 3-5 ml divided doses and Total Ropivacaine 0.1% with Fentanyl 2mcg/ml Given from pump. (ml) Dose:: 3mL, 3mL Additives (Indicate Dose Given ): None Infusion Medication: No Infusion Started Block Level: T10 Paresthesia: None Ultrasound: Not Used Number of Attempts (See previous attempts in note section): 1 Procedure Tolerated: No Complications Procedure Outcome: Successful Performed By: Isabel Gomez
[2023-04-03] MEDS: Sertraline 50 MG TAB 100 MG PO (14:45)
[2023-04-03] MEDS: Normal Saline Flush 10 ML SYR IVP (17:37)
[2023-04-03] MEDS: Ondansetron 4 MG/2 ML VIAL IVP (17:37)
--- NOTE | 2023-04-03 19:38 | OBVDS_ITS ---
Date of service: 04/03/23 Time of Service: 19:38 OB Labor/ Delivery Information Baby A Delivery Delivery Method: Spontaneaous Presentation: Vertex Vertex Position: Left Occipital Anterior Cord Description-Baby A: 3 Vessels and Clamped/Cut Amniotic Fluid: Clear (terminal mec at only) Delivery Outcome: Liveborn Infant Complications: none Infant Transferred: Remains with Mother Note: Mary Araya was admitted 04/02/23 pm for induction of labor due to pre- eclampsia at 37 weeks gestation. Her initial labs and VS did not require magnesium sulfate per previous provider consultation. She had Cook catheter for cervical ripening which came out spontaneously at 2100 on 04/02/23 and then she chose to rest the night. On 04/03/23 in the morning she was not carine and was given 50 mcg of misoprostol that allowed labor to ensue. FHR tracing was CAT I. She received an epidural once she was over 4 cm and progressed to 9.5 cm. She began to have some urge to push and we attempted to do so with reducing cervical lip. Minimal progress was noted and decision to rest and do frequent position changes allowed for her to progress to 10cm and +2 at 1857. Second stage huddle was held and low risk status was noted for shoulder dystocia and small risk for PPH due to IOL and plan to run pitocin IV per orders for active management was reviewed. She pushed with excellent effort. FHR CAT II due to some variable deceleration and FHR baseline of 160. Baby yarelis Araya was born BEVERLY over small 1st degree laceration at vaginal introitus at 1923. She was brought [facility]'s abdomen for skin to skin by Mary. Positive family bonding was noted. Pitocin was initiated and placenta delivered intact at 1922. Fundus firmed to U with massage and QBL was 150. 1 stitch of 3.0 vicryl was used to close laceration at introitus. Baby's scores were 8 at 1 minute and 9 at 5 minutes. Mother and baby girl, Neisha Buckley, are in satisfactory condition. Expect normal PP course. Providers Nurse Dumpcart Driver: Natalia Alvarez Panel Machine Setter: Isabel Gomez Nurse: Krystal Law Nurse: Kristina Cotto Labor/Delivery Information Number of Babies in Womb: 1 Steroids Given: None Reason Steroids Not Administered: N/A Group Beta Strep: N/A Antibiotics Administered: No Rubella Status: Immune Blood Type: A+ Varicella Immunity: Immune Maternal Complications: None Shoulder Dystocia: No Stages of Labor Onset of Labor Date: 04/03/23 Onset of Labor Time: 08:00 Complete Dilatation Date: 04/03/23 Complete Dilatation Time: 18:57 Labor - Stage 1 Duration: 10 hours and 57 minutes ROM Baby A: 04/03/23 ROM Baby A: 13:22 ROM Total Time- Baby A: [id number] Infant Delivery Date-Baby A: 04/03/23 Delivery Time-Baby A: 19:18 Labor Stage 2 Duration: 21 minutes Placenta Delivery Date-Baby A: 04/03/23 Placenta Delivery Time-Baby A: 19:23 Labor-Stage 3 Duration: 5 minutes Total Length of Labor-Baby A: 11 hours and 18 minutes Placenta Cultured: No Placenta Status: Delivered Baby A Gender: Female Gestational Status: Early Term (37-38.6 wks) Gestational Age in Weeks/Days: 37 Weeks and 1 Days Score-1 Minute Interval(Baby A) Heart Rate-1 minute: 100 BPM or Greater Respiratory Effort- 1 minute: Spontaneous/Strong Cry Muscle Tone-1 minute: Active Movement Reflex Response-1 minute: Prompt Response Color-1 minute: Pallor or Cyanosis Total Score-1 minute: 8 Score-5 Minute Interval(Baby A) Heart Rate- 5 minute: 100 BPM or Greater Respiratory Effort-5 minute: Spontaneous/Strong Cry Muscle Tone-5 minute: Active Movement Reflex Response-5 minute: Prompt Response Color-5 minute: Bluish Hands or Feet Total Score- 5 minute: 9
[2023-04-03] MEDS: Ibuprofen 600 MG TAB PO (22:17)
[2023-04-03] MEDS: Hamamelis Leaf/Glycerin 100 EACH BOX PR (22:33)
[2023-04-03] MEDS: Dibucaine 1% 28 GM TUBE TP (22:34)
[2023-04-04] VITALS (7 sets, daily range): BP systolic 116–137; BP diastolic 68–92; PULSE 66–88; RESP 16–18; TEMP 36.4–36.9; O2SAT 98
--- NOTE | 2023-04-04 05:43 | W.ANESPOSTOP ---
Postoperative Evaluation Date, Time and Location Date Performed: 04/04/23 Time Performed: 05:35 Patient Location: Obstetrics Vital Signs Most Recent Imported Vital Signs: Most Recent Vital Signs Temp Pulse Resp BP Pulse Ox 36.5 C 75 16 116/68 100 04/04/23 04:09 04/04/23 04:09 04/03/23 17:45 04/04/23 04:09 04/03/23 13:20 Pain Score Most Recent Pain Score: Most Recent Pain Score Pain Level 2 04/03/23 22:17 Assessment Mental Status: Unable to Participate (Document Reason) (Sleeping, spoke with RN, history of narcolepsy) Airway and Respiratory Function: Patent airway with normal (patient baseline) respiratory exam Cardiovascular Function: Hemodynamically Stable Hydration Status: Adequately Hydrated Nausea & Vomiting: No Nausea or Vomiting Pain: Pt. Denies Any Pain Peripheral Nerve Block: Patient did not receive a nerve block Postoperative Comments:: Vital signs stable, catheter removed without incident, patient has been up to ambulate
[2023-04-04] MEDS: Sertraline 50 MG TAB 100 MG PO (08:39)
[2023-04-04] MEDS: Docusate Sodium 100 MG CAP PO ×2 (08:40→20:14)
[2023-04-04] MEDS: Acetaminophen 325 MG TAB 650 MG PO ×2 (08:40→16:20)
--- NOTE | 2023-04-04 10:48 | W.PM.OBPNV1 ---
Date of service: 04/04/23 Time of Service: 10:48 Assessment and Plan Assessment and plan (1) Term delivered: Status: Acute Assessment and plan: A: Nml PPD#1 off to a good start Very happy with epxerience P: Continue routine PP care Vasectomy is planned Expect discharge tomorrow (2) Pre-eclampsia complicating hypertension: Status: Acute Assessment and plan: Normotensive, headache resolved Will continue to monitor throughout the day Subjective Subjective Patient comments: No complaints, Pain well controlled, Tolerating diet and Flatus present Patient's Mood: happy baby status: Doing well, Nursing well, Rooming in and Strong Bonding Observed [place] feeding status: Exclusively breast feeding Exam Physical Exam Vital signs: Temp Pulse Resp BP Pulse Ox 97.7 F 75 16 116/68 100 04/04/23 04:09 04/04/23 04:09 04/03/23 17:45 04/04/23 04:09 04/03/23 13:20 Vital Signs Reviewed: Yes Constitutional Constitutional: no acute distress, average body habitus and cooperative HEENT Exam HEENT Exam: Normal Neck Exam Neck Exam: Normal Breast Exam Bilateral: Breast Exam: Normal and Soft Nipple Exam: Normal and Uninjured Respiratory Exam Respiratory Exam: Normal Cardiovascular Exam Cardiovascular Exam: Normal Abdominal Exam Abdomen: Other (soft and nontender) Fundal Exam Fundus: Below Umbilicus and Firm Rectal Exam Rectal Exam: Not Done Exam Patient deferred: external exam Extremities Exam Extremity Exam: Normal, Full ROM and Warm to Touch Back/Spine/Pelvis Exam Back Exam: Normal Skin Exam Skin Exam: Normal Neurological Exam Neurological Exam: Normal (Headache has resolved, BP within normal range) Psychiatric Exam Psychiatric Exam: Normal Hemorrrhage Note Kruse Catheter Urinary Catheter Size: 14
[2023-04-04] MEDS: Ibuprofen 600 MG TAB PO ×2 (11:49→20:13)
[2023-04-05 00:05] VITALS: BP 139/89; PULSE 68; RESP 18
[2023-04-05 06:00] VITALS: BP 122/85; PULSE 66; RESP 18
[2023-04-05] MEDS: Ibuprofen 600 MG TAB PO (07:49)
[2023-04-05] MEDS: Sertraline 50 MG TAB 100 MG PO (07:50)
[2023-04-05] MEDS: Docusate Sodium 100 MG CAP PO (07:52)
[2023-04-05 08:00] VITALS: BP 133/93; PULSE 73; RESP 16; TEMP 36.5; O2SAT 98
--- NOTE | 2023-04-05 09:24 | W.PM.OBPNV1 ---
Date of service: 04/05/23 Time of Service: 09:24 Assessment and Plan Assessment and plan (1) Term delivered: Status: Acute Assessment and plan: A: nml PPD#2 P: Discharge to home F/up at 2 & 6 wks (2) Pre-eclampsia complicating hypertension: Assessment and plan: resolving Subjective Subjective Patient comments: No complaints, Pain well controlled, Tolerating diet and Flatus present Patient's Mood: happy [place] baby status: Doing well, Nursing well, Rooming in and Strong Bonding Observed feeding status: Exclusively breast feeding Exam Physical Exam Vital signs: Temp Pulse Resp BP Pulse Ox 97.7 F 73 16 133/93 H 98 04/05/23 08:00 04/05/23 08:00 04/05/23 08:00 04/05/23 08:00 04/05/23 08:00 Vital Signs Reviewed: Yes Constitutional Constitutional: no acute distress, average body habitus and cooperative HEENT Exam HEENT Exam: Normal Neck Exam Neck Exam: Normal Breast Exam Bilateral: Breast Exam: Normal and Soft Respiratory Exam Respiratory Exam: Normal Cardiovascular Exam Cardiovascular Exam: Normal Abdominal Exam Abdomen: Other (soft and nontender) Fundal Exam Fundus: Below Umbilicus and Firm Rectal Exam Rectal Exam: Not Done Exam Patient deferred: external exam Extremities Exam Extremity Exam: Normal, Full ROM and Warm to Touch Back/Spine/Pelvis Exam Back Exam: Normal Skin Exam Skin Exam: Normal Neurological Exam Neurological Exam: Normal (Headache has resolved, BP within normal range) Psychiatric Exam Psychiatric Exam: Normal Hemorrrhage Note IV Site Left Hand: IV Catheter Gauge: 20 Kruse Catheter Urinary Catheter Size: 14
--- NOTE | 2023-04-05 09:27 | DSE_ITS ---
Date of service: 04/05/23 Time of Service: 09:27 DS: Diagnosis Discharge Diagnosis (1) Term delivered: Status: Acute (2) Pre-eclampsia complicating hypertension: Discharge Plan Disposition Patient Disposition: Home Condition: Good Discharge Details Reason For Visit: Preeclampsia Admit Date/Time: 04/02/23 15:39 Admit Provider: Maty Cotto Attending Provider: Maty Cotto Primary Care Provider: Gaye Garcia Hospital Course Hospital Course: IOL resulting in , nml PP course, pre-eclampsia resolving. Home Meds and New Rx's Prescriptions: No Action sertraline [Zoloft] 50 mg tablet 100 mg PO DAILY Rx Instructions: 01/17/21 [facility] note lorazepam [Ativan] 0.5 mg tablet 0.5 mg PO BID PRN (Reason: anxiety) Qty: 20 0RF PNV,calcium 86-owup-pbrut acid 27 mg iron- 1 mg tablet 1 tab PO DAILY Qty: 90 3RF ondansetron 4 mg tablet,disintegrating 4 mg PO Q6H PRN (Reason: nausea and vomiting) Qty: 60 3RF famotidine 10 mg tablet 10 mg PO BID Qty: 60 5RF dextroamphetamine-amphetamine [Adderall XR] 10 mg capsule,extended release 24hr 10 mg PO BID Patient Comments: [facility] [place] 03/21/23 magnesium 250 mg Tablet 250 mg PO DAILY Discharge Instructions Additional Instructions: Please keep your 2 and 6 week appointments, call for any concern or question. Stand Alone Forms: BC Instructions, BC Post Vaginal Deliver Activity:: Activity as Tolerated Equipment/Supplies:: No Equipment Needed Diet:: Normal Diet OB:DS Summary Summary Vaginal Delivery Method: Spontaneaous Episiotomy Description: None Laceration Description: Perineal Contraception Discussed Contraception Discussed: Yes Contraceptive Plan: Vasectomy, [place] Infant Gender-Baby A: Female Status at Discharge Functional status at discharge: independent ambulation Overall status at discharge: patient is progressing back to baseline Mental Status: mental status grossly normal Speech and Movement: speech and movement normal and speech clear Mood: congruent mood Affect: normal affect Exam Physical Exam Vital signs: Temp Pulse Resp BP Pulse Ox 97.7 F 73 16 133/93 H 98 04/05/23 08:00 04/05/23 08:00 04/05/23 08:00 04/05/23 08:00 04/05/23 08:00 Constitutional Constitutional: no acute distress, average body habitus and cooperative HEENT Exam HEENT Exam: Normal Neck Exam Neck Exam: Normal Breast Exam Bilateral: Breast Exam: Normal and Soft Respiratory Exam Respiratory Exam: Normal Cardiovascular Exam Cardiovascular Exam: Normal Abdominal Exam Abdomen: Other (soft and nontender) Fundal Exam Fundus: Below Umbilicus and Firm Rectal Exam Rectal Exam: Not Done Exam Patient deferred: external exam Extremities Exam Extremity Exam: Normal, Full ROM and Warm to Touch Back/Spine/Pelvis Exam Back Exam: Normal Skin Exam Skin Exam: Normal Neurological Exam Neurological Exam: Normal (Headache has resolved, BP within normal range) Psychiatric Exam Psychiatric Exam: Normal PFSH All Active Problems (Updated 04/05/23 @ 09:26 by Maty Cotto) Term delivered (Acute) Panic disorder without agoraphobia (Acute) [facility] [place] 03/21/2023 Hypersomnia (Acute ~11/2022) 11/08/22 Psych visit 02/06/23 Psych vs. 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 states she had a complete work-up when she was 15, and hasn't had any issues with it since. 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 Confirmed: 7-week empty gestational sac Narcolepsy Pt. 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 Had 2 seizures after; normal eeg. Last seizure 2016 Surgical History H/O dilation and curettage Family History Mother Anxiety Hypertension Dx'ed in her 30s ADHD Hypersomnia High cholesterol Sister Anxiety Paternal Aunt Cancer Colon cancer Paternal Uncle Cancer Paternal Grandmother Cancer Colon cancer Maternal Grandmother Anxiety Maternal Aunt Heart disease Father Hypertension Dx'ed in his 30s Prostate cancer High cholesterol Clotting disorder 3 DVT's unknown clotting disorder on blood thinners Social History Smoking/Tobacco Use Status: Never Smoking risk assessment performed?: Yes Alcohol Intake: current Alcohol Intake frequency: holidays/special occasions only Drug use: Never Substance use type: does not use Details: alcohol: unknown Adopted: No Caregiver/Support person: Yes Foster care: No Household members: spouse and children Housing: house Number of Children: 1 Communication Needs: None Education Level: college Details: Bachelor's Degree Do you need help understanding health information?: Never 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, 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[employer] [employer] Pets and animals: Yes Pets and animals: cat(s) and dog(s) Sexually active: Yes Do you think of yourself as: straight/heterosexual Current gender identity: female What is your relationship status?: living with partner How often do you talk on the phone with friends or family?: three or more times per week How often do you get together with friends or relatives?: three or more times per week Do you belong to any clubs or organized social groups?: yes Panel score (0-1 are the most socially isolated patients): 3 What type of physical activity do you participate in: regular exercise and running Duration: 30-45 minutes/day Frequency: 3-4 times per week Andie/Jew: Quaker Special andie needs: No Seatbelt use: always Helmet use: Yes Drive 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 Date GA/Weeks # Preg Succ Route Wgt Sex Labor Lgth Anesth esia Location Prov Complic 01/13/19 38 No Yes vaginal 8 lb 2 oz Male 14 regional [facility] other 05/17/21 6 No No 08/16/21 5 No 05/16/22 5 No No Delivery Date: 01/13/19 Last Updated by: Natalia Bunn CNM induced for pre-e, balloon and 50 mcg miso PV and pitocin at 7 cms, 9 min second stage. second degree perineal, no magnesium, [place] Delivery Date: 05/17/21 Last Updated by: Natalia Alvarez CNM blighted ovum, D&C Delivery Date: 08/16/21 Last Updated by: Natalia Alvarez CNM SAB no D&C Delivery Date: 05/16/22 Last Updated by: Natalia Alvarez CNM SAB no D&C DS: Data Vitals/I&O Vitals and I&O: Vital Signs Temperature 97.7 F 04/05/23 08:00 Temperature 98.2 F 04/02/23 16:00 Temperature Source Oral 04/05/23 08:00 Pulse 73 04/05/23 08:00 Pulse 83 04/02/23 16:00 Pulse Rhythm Regular 04/05/23 08:00 Respiratory Rate 16 04/05/23 08:00 Blood Pressure 133/93 H 04/05/23 08:00 Blood Pressure 158/105 04/02/23 16:00 Blood Pressure Mean 106 04/05/23 08:00 Pulse Oximetry 98 04/05/23 08:00 Pain Level 3 04/05/23 08:00 Comment CNM aware in change of temp 04/03/23 17:00 Intake & Output 04/04/23 04/04/23 04/05/23 11:59 23:59 11:59 Output Total 600 / 600 Balance -600 / -600 Output: Urine 600 / 600 Other: Urine Color Light Yesenia Urine Appearance Clear Hematuria Urine Odor None
[2023-04-05] MEDS: Acetaminophen 325 MG TAB 650 MG PO (11:54)
== END 2023-04-05 13:00 | disposition home or self-care (01) | DRG 806 ==
LOC: OBS 15:46
PROVIDERS: Admitting Provider Advanced Practice Midwife; PCP Nurse Practitioner Adult Health; Visit Provider Advanced Practice Midwife
DX: O14.94 Unspecified pre-eclampsia, complicating childbirth (principal); O99.354 Diseases of the nervous system complicating childbirth; Z37.0 Single live birth; Z3A.37 37 weeks gestation of pregnancy; G47.419 Narcolepsy without cataplexy; G43.009 Migraine without aura, not intractable, without status migrainosus; O99.344 Other mental disorders complicating childbirth; F90.9 Attention-deficit hyperactivity disorder, unspecified type; F32.A Depression, unspecified; O75.89 Other specified complications of labor and delivery; E78.5 Hyperlipidemia, unspecified; O70.0 First degree perineal laceration during delivery; F41.0 Panic disorder [episodic paroxysmal anxiety]
CPT/HCPCS: 59200; 36415; 80053; 85027; 86850; 86900; 86901; 59025; 82565; 84156; J2405; J3490

== ENCOUNTER 2023-05-22 11:16 | Outpatient (REF) | payer OTHER, SELFPAY ==
--- NOTE | 2023-05-22 10:45 | PAPFT_PTH ---
PATIENT: Mary Araya LOC: [facility] U#:[id number] AGE/SX: 38/F ROOM: RE05/22/[address]: Natalia Bunn : 1985 BED: DIS: 05/22/2023 SPEC #: [id number] RECD: 05/23/23 18:12 STATUS: MEGAN REPhilomena #: [id number] WILMA: 05/22/23 10:[address]: Natalia Bunn DEPT: [facility] Cytology RECD BY: Federica Arauz ENTERED: 05/23/23 18:12 SP TYPE: PAPFT OTHR DR: Gaye Garcia APRN Tissues: 1 - CX/ENDOCX FOR PAP SMEARS Procedures: PAP THIN PREP/UVM Screening HPV DNA PROBE Comments: [id number]
== END 2023-05-22 11:17 | disposition home or self-care (01) ==
LOC: LBN 11:16
PROVIDERS: PCP Nurse Practitioner Adult Health; Visit Provider Advanced Practice Midwife
DX: Z12.4 Encounter for screening for malignant neoplasm of cervix (principal); Z11.51 Encounter for screening for human papillomavirus (HPV)
CPT/HCPCS: 88142; 87624

== ENCOUNTER 2024-05-26 11:20 | Outpatient (CLI) | payer OTHER, SELFPAY ==
[2024-05-26 12:12] LABS: HCG Quant, Pregnancy 774 mIU/mL (1-3)
== END 2024-05-26 11:21 | disposition home or self-care (01) ==
LOC: LBO 11:21
PROVIDERS: PCP Family Medicine; Visit Provider Advanced Practice Midwife
DX: N92.6 Irregular menstruation, unspecified (principal)
CPT/HCPCS: 36415; 84702

== ENCOUNTER 2024-05-30 14:43 | Outpatient (CLI) | payer OTHER, SELFPAY ==
[2024-05-30 15:56] LABS: HCG Quant, Pregnancy 4232 mIU/mL (1-3)
== END 2024-05-30 16:02 ==
PROVIDERS: PCP Family Medicine; Visit Provider Advanced Practice Midwife
DX: O36.80X0 Pregnancy with inconclusive fetal viability, not applicable or unspecified (principal); Z3A.01 Less than 8 weeks gestation of pregnancy
CPT/HCPCS: 76817; 36415; 84702

== ENCOUNTER 2024-07-13 09:44 | Day surgery (SDC) | payer OTHER, SELFPAY ==
[2024-07-13] VITALS (18 sets, daily range): BP systolic 109–133; BP diastolic 58–86; PULSE 72–82; RESP 14–19; TEMP 36.2–36.7; O2SAT 98–100; BMI 29.3
--- NOTE | 2024-07-13 10:20 | ANES.PREOP_ITS ---
General Info Date of Service Date Performed: 07/13/24 Height: 5 ft 7 in Weight: 85.1 kg Body Mass Index (BMI): 29.3 Surgical Procedure: Operation Date: 07/13/24 09:10 Proposed Procedure Side Surgeon p D+C, suction evacuation of uterus Thelma Rosas MD Actual Procedure Side Surgeon p D+C, suction evacuation of uterus Thelma Rosas MD Pre-Op Diagnosis Post-Op Diagnosis Embryonic demise Meds Allergies and Home Medications Allergies Allergy/AdvReac Type Severity Reaction Status Date / Time Sulfa (Sulfonamide Allergy Intermediate Hives Verified 07/13/24 09:53 Antibiotics) prochlorperazine (From AdvReac Intermediate dizziness, Verified 07/13/24 09:53 Compazine) disoriented environmental Allergy Intermediate Other (See Uncoded 07/13/24 09:53 Comment) Home Medication ?Medication ?Instructions ?Recorded aripiprazole 2 mg tablet (Abilify) 2 mg PO DAILY #30 tabs 06/14/24 sertraline 100 mg tablet 100 mg PO DAILY #1 tab 06/14/24 ondansetron 8 mg disintegrating 8 mg PO Q12H PRN nausea and 06/15/24 tablet vomiting #20 tabs vitamin with calcium 1 tab PO DAILY #90 tabs 06/15/24 no.72-iron 27 mg-folic acid 1 mg tablet ( Plus (calcium carbonate)) promethazine 25 mg tablet 25 mg PO Q6H PRN nausea and 07/04/24 vomiting #30 tabs lorazepam 0.5 mg tablet (Ativan) 0.5 mg PO DAILY PRN anxiety #14 07/07/24 tabs dextroamphetamine-amphetamine ER 20 mg PO BID #60 caps 07/11/24 20 mg 24hr capsule,extend release (Adderall XR) Current Visit Medications: Current Medications Generic Name Dose Route Start Last Admin Trade Name Freq PRN Reason Stop Dose Admin Ringer's Solution 1,000 mls @ 125 mls/hr 07/13/24 06:00 IV 07/13/24 23:59 INFUSION CARLOS Doxycycline Hyclate 100 mg/ 100 mls @ 100 mls/hr 07/13/24 06:00 Sodium Chloride IVPB 07/13/24 23:59 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 [facility] IV Miscellaneous Supplies 1 each 07/13/24 06:00 Iv Access IV 07/13/24 23:59 DIRECTED CARLOS Sodium Chloride 0 ml 07/13/24 06:00 Normal Saline Flush 10 Ml Syr IV 07/13/24 23:59 PRN PRN Sodium Chloride 0 ml 07/13/24 06:00 Normal Saline 10 Ml Vial IJ 07/13/24 23:59 DIRECTED PRN Sterile Water 0 ml 07/13/24 06:00 Water,Injection,Sterile 10 Ml Vial IJ 07/13/24 23:59 DIRECTED PRN PFSH Active Problems Active Problems: Problem Status Onset Code Preoperative exam for gynecologic surgery Acute Z01.818 Embryonic demise Acute O02.1 Advanced maternal age in multigravida Acute O09.529 History of pre-eclampsia Acute Z87.59 Acute Z34.90 Snoring Acute R06.83 Panic disorder without agoraphobia Acute F41.0 Hypersomnia Acute ~11/2022 G47.10 Stage 1 hypertension Acute I10 ADHD Chronic ~2004 F90.9 Hypersomnia Chronic G47.10 Anxiety Chronic F41.9 Medical History Medical History (Updated 07/12/24 @ 22:23 by Thelma Rosas MD) Missed menses Acute mastitis of left breast Term delivered Encounter for induction of labor Pre-eclampsia complicating hypertension Gestational hypertension Drug exposure, gestational Medication exposure during first trimester of Family history of clotting disorder Father has unidentified clotting disorder 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 states it goes between narcolepsy and hypersomnia Missed 05/23/2021. 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 Had 2 seizures after; normal eeg. Last seizure 2016 Heart murmur Pt. states she had a complete work-up when she was 15, and hasn't had any issues with it since. Surgical History Surgical History H/O dilation and curettage Tobacco Smoking/Tobacco Use Status: Never Passive smoking exposure: No Alcohol Alcohol Intake: current Alcohol intake frequency: holidays/special occasions only Substance Use Substance use: Never Substance use type: does not use Details: alcohol: unknown Prental History History 6 Para 2 Hx # Term Pregnancies 2 Multiple births 0 Hx # Pregnancies 0 Ectopic pregnancies 0 AB induced 0 Hx Number of Living Children 2 AB spontaneous 5 Past Pregnancies Del. Date GA/Weeks # Preg Succ Route Wgt Sex Labor Lgth Anesth esia Location [facility] 01/13/19 38 No Yes vaginal 3685.438 g Male 14 regional [facility] other 05/17/21 6 No No 08/16/21 5 No 05/16/22 5 No No 04/03/23 37 No Yes vaginal Female 11hrs 18min regional [facility]ano 07/12/24 11 No No 07/13/24 11 No No Kellee HARDING Delivery Date: 01/13/19 Last Updated by: Maty Cotto IOL for pre-e, balloon, 50 mcg miso PV, pitocin at 7 cms, 9 min 2nd stage, no magnesium, [place] Delivery Date: 05/17/21 Last Updated by: Natalia Alvarez CNM blighted ovum, D&C Delivery Date: 08/16/21 Last Updated by: Natalia Alvarez CNM SAB no D&C Delivery Date: 05/16/22 Last Updated by: Natalia Alvarez CNM SAB no D&C Delivery Date: 04/03/23 Last Updated by: Maty Cotto IOL for pre-eclampsia, balloon & miso, [place] Delivery Date: 07/12/24 Last Updated by: Thelma Rosas MD 11w embryonic demise. D&C Delivery Date: 07/13/24 Last Updated by: Makayla Plascencia LPN Embryonic demise @ 11.1 weeks; D&C Vital Signs and Lab Results Vital Signs Most Recent Vital Signs in EMR: Most Recent Vital Signs Temp Pulse Resp BP Pulse Ox 36.7 C 78 16 133/86 100 07/13/24 09:59 07/13/24 09:59 07/13/24 09:59 07/13/24 09:59 07/13/24 09:59 Lab Results Blood Type / Crossmatch: No Data to Display Complete Blood Count: No Data to Display Complete Metabolic Panel: No Data to Display Liver Function Panel: No Data to Display Coagulation Panel: No Data to Display Cardiac Panel: No Data to Display Arterial Blood Gas: No Data to Display Venous Blood Gas: No Data to Display Pancreas Panel: No Data to Display Thyroid Panel: No Data to Display Infectious Disease: No Data to Display Blood Cultures: No Data to Display Toxicology Panel: No Data to Display Panel: No Data to Display Anesthesia Assessment and Plan Anesthesia History Personal History: No History of Anesthesia Complications Family History: No Family History of Anesthesia Complications Exercise Tolerance Exercise Tolerance: Metabolic Equivalents>4 Pertinent Negatives Pertinent Negatives: No Major Cardiovascular Symptoms or Complaints and No Major Pulmonary Symptoms or Complaints Cardiac & Pulmonary Exam Cardiac Exam: Normal S1/S2 Heart Sounds Pulmonary Exam: Clear Bilateral Breath Sounds Implantable Cardiac Device Does patient have a Pacemaker or an ICD?: No Airway Exam Known Difficult Airway: No Mallampati Class: 2 Mouth Opening: Normal (> 3cm) Thyromental Distance: Greater than 3 cm Neck Range of Motion: Full ROM Neck Circumference: Normal Teeth Condition: Normal Dentition ASA Classification ASA Score: ASA 2 Emergency Case?: No NPO Status NPO Status: NPO Clears >2 hours, Solids >8 hours Status Status: Positive HCG Anesthesia Plan Resuscitation Status: Full Code Anesthesia Technique: General Anesthesia Airway Planned: Endotracheal Tube (RSI, patient reports frequent vomiting and GERD symptoms) Monitors Used: Standard Monitors and SedLine
[2024-07-13] MEDS: Lactated Ringers 1,000 ML 125 ML IV (10:22)
[2024-07-13] MEDS: DOXYCYCLINE 100 MG in Normal Saline 100 ML IVPB (10:32)
[2024-07-13 10:58] LABS: HCT 37.3 % (36.0-46.0); HGB 12.9 g/dL (11.2-15.7); MCH 29.7 pg (27.0-33.0); MCHC 34.6 % (32.0-36.0); MCV 86 fL (80-95); MPV 9.8 fL (8.0-11.0); Platelet Count 261 10^3/uL (130-400); RBC 4.34 10^6/uL (3.93-5.22); RDW 12.4 % (11.7-14.6); WBC 11.37 10^3/uL (4.4-10.8)
[2024-07-13 11:05] LABS: Anion Gap 12.3 mmol/L (3-11); CO2 23.7 mmol/L (21.0-32.0); Chloride 104 mmol/L (98-107); Potassium 3.7 mmol/L (3.5-5.1); Sodium 140 mmol/L (136-145)
[2024-07-13] MEDS: Bupivacaine 0.25% Pres-Free 30 ML VIAL (11:14)
--- NOTE | 2024-07-13 11:34 | POCSPONT_PTH ---
PATIENT: Mary Araya LOC: [facility] U#:[id number] AGE/SX: 39/F ROOM: RE07/13/[address]: Thelma Rosas : 1985 BED: DIS: 07/13/2024 SPEC #: [id number] RECD: 07/13/24 13:09 STATUS: MEGAN REPhilomena #: [id number] WILMA: 07/13/24 11:[address]: Thelma Rosas DEPT: Surgical Specimen RECD BY: Vanessa Hagan Tissues: 1 - ,SPONTANEOUS Procedures: GROSS AND MICRO LEVEL 4 Comments: [id number]
[2024-07-13] MEDS: HYDROmorphone 2 MG/ML SYR IVP ×2 (12:12→12:25)
[2024-07-13] MEDS: Normal Saline 10 ML VIAL IJ (12:12)
--- NOTE | 2024-07-13 12:17 | W.PM.DSUDISC ---
Date of service: 07/13/24 Time of Service: 12:20 Discharge Plan Disposition Patient Disposition: Home Discharge Details Reason For Visit: D&C Attending Provider: Thelma Rosas Primary Care Provider: Rhiannon Knight Home Meds and New Rx's Prescriptions: No Action ondansetron 8 mg tablet,disintegrating 8 mg PO Q12H PRN (Reason: nausea and vomiting) Qty: 20 3RF Plus (calcium carb) 27 mg iron- 1 mg tablet 1 tab PO DAILY Qty: 90 5RF aripiprazole [Abilify] 2 mg tablet 2 mg PO DAILY Qty: 30 2RF sertraline 100 mg tablet 100 mg PO DAILY Qty: 1 0RF promethazine 25 mg tablet 25 mg PO Q6H PRN (Reason: nausea and vomiting) Qty: 30 1RF lorazepam [Ativan] 0.5 mg tablet 0.5 mg PO DAILY PRN (Reason: anxiety) Qty: 14 5RF dextroamphetamine-amphetamine [Adderall XR] 20 mg capsule,extended release 24hr 20 mg PO BID MDD 40 Qty: 60 0RF Discharge Instructions Stand Alone Forms: DSU Post D&C Activity:: Activity as Tolerated Shower/Bathe:: 24 hours Diet:: As Tolerated Discharge Orders Discharge Orders: Discharge Order (Routine); Ordered 07/13/24 Ordered By: Thelma Rosas
--- NOTE | 2024-07-13 12:22 | W.PM.OP ---
Date of service: 07/13/24 Time of Service: 12:22 Operative Note Operative Note DATE OF PROCEDURE: 07/13/24 PRE-OP DIAGNOSIS: embryonic demise at 11w EGA PROCEDURE: Cerevical dilation and suction evacuation of uterine contents SURGEON: Thelma Rosas ASSISTING SURGEON: Makayla Fulton Refer to Anesthesia Record ESTIMATED BLOOD LOSS: 50 PATHOLOGY: other (products of conception to pathology) COMPLICATIONS: None Patient was transported to: PACU Patient's condition: stable Implants: None Indications: 39yo female who was diagnosed with embryonic demise on 07/12/24. CRL c/w 10w EGA. Pt requested D&C Findings: Non-viable IUP. Uterus sounded to 12cm. Probable placenta previa. Uterine contents removed using u/s guidance. Uterine cavity empty at the completion of the procedure. Procedure Description: Patient was taken to the operating room where she was placed in the dorsal supine position and general endotracheal anesthesia was administered without difficulty. IV Doxycycline was administered upon arrival in the OR. She was then placed in the dorsal lithotomy position in yellowfin stirrups in a neurologically neutral position. She was then prepped, and draped in the usual sterile fashion. Surgical timeout was performed. Dr. Fulton was present for the entire case and provided transabdominal u/s guidance during the procedure [place] speculum was placed into the vagina and the anterior lip of the cervix was infiltrated with 2 cc of 0.25% Marcaine without epinephrine. A single-tooth tenaculum was then used to grasp and hold the anterior lip of the cervix. A paracervical block was performed with 4 cc of quarter percent Marcaine injected into the 4 and 8:00 paracervical spaces respectively. The uterus was sounded to 12 cm. The cervix was then sequentially dilated to a maximum of 21 Farmer and a 10 mm curved suction cannula was attached to suction and the level of suction tested. The cannula was inserted into the uterine cavity attached to suction and sequentially all 4 quadrants of the uterine cavity were suction curetted until minimal tissue returned. The suction cannula was then removed a banjo curette was used to perform a gentle curetting of all 4 quadrants of the uterine cavity. Minimal tissue was returned. A final insertion of the suction cannula and suction curetting of all 4 quadrants was performed with minimal tissue returned. The specimen was examined and extremities and calvarium were identified. A final pass of the suction canula was performed with no tissue returned. The tenaculum site was noted to be bleeding. A interrupted suture of 2-0 Vicryl was used suture ligate a bleeding site in the anterior lip of the cervix. All instruments were removed from the vagina. Patient was awakened and transported to recovery area in stable condition. All sponge lap needle counts correct x2
--- NOTE | 2024-07-13 12:50 | W.ANESPOSTOP ---
Postoperative Evaluation Date, Time and Location Date Performed: 07/13/24 Time Performed: 12:42 Patient Location: Day [facility] Unit Vital Signs Most Recent Imported Vital Signs: Most Recent Vital Signs Temp Pulse Resp BP Pulse Ox 36.6 C 73 17 132/79 100 07/13/24 12:36 07/13/24 12:36 07/13/24 12:36 07/13/24 12:36 07/13/24 12:36 Pain Score Most Recent Pain Score: Most Recent Pain Score Pain Level 3 07/13/24 12:36 Assessment Mental Status: Awake (Alert & Oriented to Patient Baseline) Airway and Respiratory Function: Patent airway with normal (patient baseline) respiratory exam Cardiovascular Function: Hemodynamically Stable Hydration Status: Adequately Hydrated Nausea & Vomiting: No Nausea or Vomiting Pain: Pt. Denies Any Pain Peripheral Nerve Block: Patient did not receive a nerve block
== END 2024-07-13 13:43 | disposition home or self-care (01) ==
PROVIDERS: PCP Family Medicine; Visit Provider Obstetrics & Gynecology Gynecology
PROC: (CPT 59841; principal; 2024-07-13 09:00)
DX: O02.1 Missed abortion (principal); Z3A.11 11 weeks gestation of pregnancy
CPT/HCPCS: 59820; 36415; 80051; 85027; 86850; 86900; 86901; 88305; J0665; J1100; J1171; J1885; J2003; J2250; J2405; J2704; J3010

== ENCOUNTER 2024-08-04 11:13 | Outpatient (CLI) | payer OTHER, SELFPAY ==
[2024-08-04 11:55] LABS: HCG Quant, Pregnancy 17 mIU/mL (1-3); TSH (W/Ref FT4) 2.02 uIU/mL (0.36-3.74)
== END 2024-08-04 11:14 | disposition home or self-care (01) ==
LOC: LBO 11:14
PROVIDERS: PCP Family Medicine; Visit Provider Obstetrics & Gynecology Gynecology
DX: Z09 Encounter for follow-up examination after completed treatment for conditions other than malignant neoplasm (principal); Z48.89 Encounter for other specified surgical aftercare; F90.9 Attention-deficit hyperactivity disorder, unspecified type
CPT/HCPCS: 36415; 84443; 84702

== ENCOUNTER 2024-11-27 13:41 | Emergency (ER) | payer OTHER, SELFPAY ==
[2024-11-27 13:55] VITALS: BP 133/86; PULSE 110; RESP 28; TEMP 36.6; O2SAT 98
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
[2024-11-27 15:52] VITALS: PULSE 77
[2024-11-27 16:36] VITALS: PULSE 77; RESP 15
== END 2024-11-27 16:37 | disposition home or self-care (01) ==
PROVIDERS: Emergency Provider Emergency Medicine; PCP Family Medicine
DX: F41.8 Other specified anxiety disorders (principal)
CPT/HCPCS: 99283; 99284

== ENCOUNTER 2025-06-15 18:04 | Outpatient (REF) | payer OTHER, SELFPAY ==
[2025-06-15 19:06] LABS: Cannabinoids THC Positive (Negative); METHADONE URINE SCREEN Negative (Negative)
[2025-06-24 11:20] LABS: Amphetamines Interpretation Positive.; MDA (Ecstasy Metabolite) Negative ng/mL (Cutoff: 25); Pseudoephedrine/Ephedrine Negative ng/mL (Cutoff: 25)
[2025-06-25 13:55] LABS: 2-OH-Ethyl-Flurazepam Negative ng/mL (Cutoff: 10); Alpha OH-Alprazolam Negative ng/mL (Cutoff: 10); Alpha-OH Midazolam Negative ng/mL (Cutoff: 10); Prazepam Negative ng/mL (Cutoff: 10); Zolpidem Carboxylic acid Negative ng/mL (Cutoff: 10)
== END 2025-06-15 18:05 | disposition home or self-care (01) ==
LOC: LBN 18:04
PROVIDERS: PCP Family Medicine; Visit Provider Nurse Practitioner Family
DX: F43.10 Post-traumatic stress disorder, unspecified (principal); F41.1 Generalized anxiety disorder; F90.0 Attention-deficit hyperactivity disorder, predominantly inattentive type; F32.4 Major depressive disorder, single episode, in partial remission
CPT/HCPCS: 80307; 80324; 80346

== ENCOUNTER 2025-07-02 19:57 | Outpatient (REF) | payer OTHER, SELFPAY ==
[2025-07-02 15:58] LABS: Cannabinoids THC Positive (Negative); METHADONE URINE SCREEN Negative (Negative)
== END 2025-07-02 19:58 | disposition home or self-care (01) ==
LOC: LBN 19:57
PROVIDERS: PCP Family Medicine; Visit Provider Nurse Practitioner Family
DX: Z79.899 Other long term (current) drug therapy (principal)
CPT/HCPCS: 80307